=== PATIENT | male | born 1965 | race Hispanic/Latino ===

== ENCOUNTER 2016-11-19 12:37 | Emergency (ER) | payer MEDICARE ==
--- OUTSIDE RECORDS SUMMARY | 2016-11-19 12:39 | XMS | Clinical Summary ---
:1965 Author Organization [facility] Address [address] [place] [address] Phone Care Team Providers Name Role Phone , Primary Care Provider Unavailable Allergies No Known Allergies Current Medications No known medications Active Problems Not on file Social History Tobacco Use Types Packs/Day Years Used Date Never Smoker Alcohol Use Drinks/Week oz/Week Comments No Sex Assigned at Date Recorded Not on file Last Filed Vital Signs Vital Sign Reading Time Taken Blood Pressure 210/93 01/27/2015 11:40 PM INVOICING MACHINE OPERATOR Pulse 76 01/27/2015 11:40 PM INVOICING MACHINE OPERATOR Temperature 37.1 C (98.7 F) 01/27/2015 11:40 PM INVOICING MACHINE OPERATOR Respiratory Rate 20 01/27/2015 11:40 PM INVOICING MACHINE OPERATOR Oxygen Saturation 100% 01/27/2015 11:40 PM INVOICING MACHINE OPERATOR Inhaled Oxygen Concentration - - Weight - - Height 165.1 cm (5' 5") 01/27/2015 11:41 PM INVOICING MACHINE OPERATOR Body Mass Index - - Plan of Treatment Not on file Results Not on filefrom Last 3 Months
--- OUTSIDE RECORDS SUMMARY | 2016-11-19 12:39 | XMS | Clinical Summary ---
:1965 Author Organization [facility] Address [address] [place] [id number] Phone Care Team Providers Name Role Phone Asked, No Primary Care Provider Unavailable Allergies No Known Allergies Current Medications Not on file Active Problems Problem Noted Date Type 2 diabetes mellitus 03/16/2016 Encounters Date Type Specialty Care Team Description 11/12/2016 Telephone Transplant Jazmine Valladares Urology Consult (Spoke to pt regarding missed appt w/Dr. Early 10/22/16 he stated he was not able to come in and forgot he had an appt let him know he needs to keep his appt since we have already r/s him afew times. He stated he will as long as I schedule him a -W-. Let him know I will call him back w/ appt date and time) 10/07/2016 Documentation Transplant Jazmine Valladares Kidney Eval Appts ( Mailed pt his updated itineraries w/ 3 stool cards and instructions) 10/05/2016 Telephone Transplant Jaz[facility] Vallada[facility] Kidney Eval Appts (Pt called back he stated he needs to r/s his appts that he missed he stated he has not heard from us I let him know I had spoken to him in June to let him know I was going to r/s hisappts that he missed. He stated he doesn't remember pt gave me his son's updated phone # [phone] and stated his [address] # is [address] not 01 let him know we will update information and I am going to r/shis missed appts. He stated he is only available T-T due to dialysis) 10/01/2016 Telephone Transplant Jazmine Vallada[facility] Kidney Eval Appt (Called pts mother back let her know that I need for patient to call me back so I could r/s his kidney eval appts she stated she is going to relate the message to him) from Last 3 Months Social History Tobacco Use Types Packs/Day Years Used Date Never Smoker Smokeless Tobacco: Never Used Sex Assigned at Date Recorded Not on file Last Filed Vital Signs Vital Sign Reading Time Taken Blood Pressure 132/75 04/22/2016 7:25 AM FLESHING MACHINE OPERATOR Pulse 75 04/22/2016 7:25 AM FLESHING MACHINE OPERATOR Temperature 35.8 C (96.4 F) 04/22/2016 7:24 AM FLESHING MACHINE OPERATOR Respiratory Rate 18 04/22/2016 7:24 AM FLESHING MACHINE OPERATOR Oxygen Saturation 99% 04/22/2016 7:24 AM FLESHING MACHINE OPERATOR Inhaled Oxygen Concentration - - Weight 101 kg (223 lb 6.4 oz) 04/22/2016 7:24 AM FLESHING MACHINE OPERATOR Height 167.6 cm (5' 6") 04/22/2016 7:24 AM FLESHING MACHINE OPERATOR Body Mass Index 36.06 04/22/2016 7:24 AM FLESHING MACHINE OPERATOR Plan of Treatment Health Maintenance Due Date Last Done Comments FOOT EXAM 1976 OPHTHALMOLOGY EXAM 1976 URINE MICROALBUMIN 1976 COLONOSCOPY 2016 INFLUENZA VACCINE 09/15/2016 Results Not on filefrom Last 3 Months Insurance Payer Benefit Plan / Group Subscriber ID Type Phone Address MEDICARE MEDICARE PART A AND B [id number] Medicare [place], [place] VIRGIL METCALF Transplant Self 1965 Home: [address] [phone] [place] [address]
--- NOTE | 2016-11-19 14:35 | ULT ---
RIGHT LOWER EXTREMITY VENOUS ULTRASOUND WITH DOPPLER: History Pain. COMPARISON: None. TECHNIQUE: Pool scale, color flow, Doppler imaging and spectral waveform analysis was performed of the right lo wer extremity. FINDINGS: There is compressibility, presence of flow, and augmentation of the common femoral vein, femoral vei n, and popliteal vein. Flow in the greater saphenous vein and profunda vein. Flow in the posterior tibial vein. IMPRESSION: No evidence of thrombus in the right lower extremity deep venous system. POS: [facility]
== END 2016-11-19 14:03 | disposition home or self-care (01) ==
LOC: ERS 12:37
DX: M25.561 Pain in right knee (principal); E78.5 Hyperlipidemia, unspecified; I12.0 Hypertensive chronic kidney disease with stage 5 chronic kidney disease or end stage renal disease; E11.22 Type 2 diabetes mellitus with diabetic chronic kidney disease; N18.6 End stage renal disease; F32.9 Major depressive disorder, single episode, unspecified; Z99.2 Dependence on renal dialysis; Z79.4 Long term (current) use of insulin; Z79.899 Other long term (current) drug therapy

== ENCOUNTER 2017-07-13 18:29 | Emergency (ER) | payer MEDICARE ==
[2017-07-13 19:07] LABS: #Eosinphils 0.2 thou/uL (0.0-0.7); #Lymphocytes 2.3 thou/uL (1.20-3.40); #Monocytes 0.8 thou/uL (0.11-0.59); #Neutrophils 10.7 thou/uL (1.40-6.50); %Basophils 0.3 % (0.0-1.0); %Eosinophils 1.7 % (0.0-10.0); Hemoglobin 12.7 g/dL (14.0-18.0); Mean Corpuscular HGB CONC 34.3 g/dL (32.0-36.0); Mean Corpuscular Hemoglobin 31.9 pg (27.0-31.0); Mean Platelet Volume 9.2 fL (7.4-10.4); Platelet Count 244 thou/uL (130-400); Red Blood Cell (RBC) Count 3.97 mill/uL (4.70-6.10); White Blood Cell (WBC) Count 14.1 thou/uL (4.8-10.8)
[2017-07-13 19:30] LABS: ALT (SGPT) 12 U/L (8-55); AST (SGOT) 11 U/L (5-34); Albumin 3.9 g/dL (3.5-5.0); Alkaline Phosphatase 104 U/L (40-150); Anion Gap 15 mmol/L (10-20); BUN (Urea Nitrogen) 40 mg/dL (8.4-25.7); Bilirubin, Total 0.5 mg/dL (0.2-1.2); Calc. Creatinine Clearance 0 mL/min (70-130); Calcium 9.8 mg/dL (7.8-10.44); Carbon Dioxide 30 mmol/L (22-29); Chloride 96 mmol/L (98-107); Estimated GFR-MDRD 10; Globulin 3.7 g/dL (2.4-3.5); Glucose 450 mg/dL (70-105); Potassium 4.5 mmol/L (3.5-5.1); Protein, Total 7.6 g/dL (6.0-8.3); Sodium 136 mmol/L (136-145)
[2017-07-13 19:35] LABS: CKMB 1.9 ng/mL (0-6.6); Troponin I 0.023 ng/mL (< 0.028)
--- NOTE | 2017-07-13 19:39 | RAD ---
SINGLE VIEW OF THE CHEST 07/13/17 COMPARISON: 10/31/16 HISTORY: Weakness with dizziness and shortness of breath. FINDINGS: Single view of the chest shows an enlarged but stable cardiomediastinal silhouette. Linear opacity in the right lung base likely represents atelectasis. There is no evidence of consolidation, mass, or p leural effusion. IMPRESSION: 1. Right basilar atelectasis. 2. Cardiomegaly. POS: [facility]
[2017-07-13] MEDS ORDERED: Insulin Regular 300 UNITS/3 ML VIAL ONE (19:46)
[2017-07-13 19:49] LABS: Bilirubin Negative (Negative); Blood, Urine Trace (Negative); Clarity CLEAR (Clear); Glucose, Urine (Dipstick) 500 mg/dL (Negative); Leukocyte Negative (Negative); Nitrite Negative (Negative); Protein, Urine (Dipstick) 300 mg/dL (Neg-Trace); Specific Gravity, Urine 1.017 (1.002-1.036); Urobilinogen 0.2 mg/dL (0.2-1.0); pH, Urine 7.5 (5.0-9.0)
[2017-07-13 19:50] LABS: Bacteria/HPF None Seen HPF (None Seen); Hyaline Casts/LPF 0-3 HYALINE CAST LPF (0-3 Hyaline); RBC/HPF 0-3 HPF (0-3); Squamous Epithelial 0-3 HPF (0-3); WBC/HPF 0-3 HPF (0-3)
== END 2017-07-13 20:04 | disposition home or self-care (01) ==
LOC: ERS 18:29
DX: J18.9 Pneumonia, unspecified organism (principal); I12.0 Hypertensive chronic kidney disease with stage 5 chronic kidney disease or end stage renal disease; E11.22 Type 2 diabetes mellitus with diabetic chronic kidney disease; E11.65 Type 2 diabetes mellitus with hyperglycemia; N18.6 End stage renal disease; E11.42 Type 2 diabetes mellitus with diabetic polyneuropathy; E78.5 Hyperlipidemia, unspecified; F32.9 Major depressive disorder, single episode, unspecified; Z79.899 Other long term (current) drug therapy; Z99.2 Dependence on renal dialysis; Z79.4 Long term (current) use of insulin
CPT/HCPCS: 36416; 71045; 80053; 81003; 81015; 82010; 82553; 84484; 85025; 87086; 93005; 96374; J1815

== ENCOUNTER 2018-12-02 14:12 | Emergency (ER) | payer MEDICAID, SELFPAY ==
--- NOTE | 2018-12-02 14:48 | RAD ---
PORATBLE CHEST 1 VIEW: Date: 12/02/18 Time: 1425 hours HISTORY: Chest pain. FINDINGS: Comparison made with exam of 07/13/17. The heart size is borderline. No focal areas of consolidation, pneumothoraces, janusz pulmonary edema, or pleural effusions are seen. IMPRESSION: No acute process. POS: [facility]
[2018-12-02 14:58] LABS: ALT (SGPT) 12 U/L (8-55); AST (SGOT) 14 U/L (5-34); Albumin 4.5 g/dL (3.5-5.0); Alkaline Phosphatase 68 U/L (40-110); Anion Gap 24 mmol/L (10-20); BUN (Urea Nitrogen) 45 mg/dL (8.4-25.7); Bilirubin, Total 0.4 mg/dL (0.2-1.2); Calc. Creatinine Clearance 0 mL/min (70-130); Calcium 9.4 mg/dL (7.8-10.44); Carbon Dioxide 25 mmol/L (22-29); Chloride 93 mmol/L (98-107); Estimated GFR-MDRD 6; Globulin 3.8 g/dL (2.4-3.5); Glucose 337 mg/dL (70-105); Potassium 5.3 mmol/L (3.5-5.1); Protein, Total 8.3 g/dL (6.0-8.3); Sodium 137 mmol/L (136-145)
[2018-12-02 15:22] LABS: #Basophils 0.1 thou/uL (0.0-0.2); #Eosinphils 0.3 thou/uL (0.0-0.7); #Lymphocytes 2.8 thou/uL (1.20-3.40); #Monocytes 1.2 thou/uL (0.11-0.59); #Neutrophils 9.6 thou/uL (1.40-6.50); %Basophils 0.5 % (0.0-1.0); %Eosinophils 1.9 % (0.0-10.0); %Lymphocytes 20.1 % (21.0-51.0); %Monocytes 8.8 % (0.0-10.0); %Neutrophils 68.6 % (42.0-75.0); Hemoglobin 12.6 g/dL (14.0-18.0); Mean Corpuscular HGB CONC 33.7 g/dL (32.0-36.0); Mean Corpuscular Volume 94.9 fL (78.0-98.0); Mean Platelet Volume 9.5 fL (7.4-10.4); Platelet Count 215 thou/uL (130-400); RBC Distribution Width 13.4 % (11.5-14.5); Red Blood Cell (RBC) Count 3.94 mill/uL (4.70-6.10); White Blood Cell (WBC) Count 13.9 thou/uL (4.8-10.8)
[2018-12-02] MEDS ORDERED: Ondansetron ODT 4 MG TAB ONE (16:25)
[2018-12-02] MEDS ORDERED: Acetaminophen/Codeine 30-300mg Tablet ONE (16:25)
== END 2018-12-02 16:40 | disposition home or self-care (01) ==
LOC: ERS 14:12
DX: R07.89 Other chest pain (principal); K29.70 Gastritis, unspecified, without bleeding; I12.0 Hypertensive chronic kidney disease with stage 5 chronic kidney disease or end stage renal disease; E11.22 Type 2 diabetes mellitus with diabetic chronic kidney disease; N18.6 End stage renal disease; E78.5 Hyperlipidemia, unspecified; E78.00 Pure hypercholesterolemia, unspecified; F32.9 Major depressive disorder, single episode, unspecified; Z79.899 Other long term (current) drug therapy; Z99.2 Dependence on renal dialysis
CPT/HCPCS: 36415; 71045; 80053; 84484; 85025; 93005; Q0162

== ENCOUNTER 2019-02-12 13:19 | Emergency (ER) | payer MEDICARE ==
[2019-02-12 13:57] LABS: #Basophils 0.1 thou/uL (0.0-0.2); #Eosinphils 0.4 thou/uL (0.0-0.7); #Lymphocytes 2.1 thou/uL (1.20-3.40); #Monocytes 0.9 thou/uL (0.11-0.59); #Neutrophils 8.5 thou/uL (1.40-6.50); %Basophils 0.8 % (0.0-1.0); %Eosinophils 2.9 % (0.0-10.0); %Lymphocytes 17.8 % (21.0-51.0); %Monocytes 7.5 % (0.0-10.0); %Neutrophils 70.9 % (42.0-75.0); Hemoglobin 12.6 g/dL (14.0-18.0); Mean Corpuscular HGB CONC 33.8 g/dL (32.0-36.0); Mean Corpuscular Hemoglobin 32.2 pg (27.0-31.0); Mean Corpuscular Volume 95.2 fL (78.0-98.0); Mean Platelet Volume 9.3 fL (7.4-10.4); Platelet Count 236 thou/uL (130-400); RBC Distribution Width 14.1 % (11.5-14.5); Red Blood Cell (RBC) Count 3.91 mill/uL (4.70-6.10)
[2019-02-12 14:18] LABS: ALT (SGPT) Less than 7 U/L (8-55); AST (SGOT) 9 U/L (5-34); Albumin 3.8 g/dL (3.5-5.0); Alkaline Phosphatase 58 U/L (40-110); Anion Gap 22 mmol/L (10-20); BUN (Urea Nitrogen) 68 mg/dL (8.4-25.7); Bilirubin, Total 0.5 mg/dL (0.2-1.2); Calc. Creatinine Clearance 0 mL/min (70-130); Calcium 10.3 mg/dL (7.8-10.44); Carbon Dioxide 26 mmol/L (22-29); Chloride 97 mmol/L (98-107); Estimated GFR-MDRD 6; Globulin 3.6 g/dL (2.4-3.5); Glucose 208 mg/dL (70-105); Potassium 5.2 mmol/L (3.5-5.1); Protein, Total 7.4 g/dL (6.0-8.3); Sodium 140 mmol/L (136-145)
== END 2019-02-12 18:00 | disposition home or self-care (01) ==
LOC: ERS 13:19
DX: R42 Dizziness and giddiness (principal); I12.0 Hypertensive chronic kidney disease with stage 5 chronic kidney disease or end stage renal disease; E11.22 Type 2 diabetes mellitus with diabetic chronic kidney disease; N18.6 End stage renal disease; E78.5 Hyperlipidemia, unspecified; E78.00 Pure hypercholesterolemia, unspecified; F32.9 Major depressive disorder, single episode, unspecified; Z79.899 Other long term (current) drug therapy; Z99.2 Dependence on renal dialysis
CPT/HCPCS: 36415; 36416; 80053; 82550; 85025; 93005; 96360; 96361

== ENCOUNTER 2019-11-03 10:01 | Emergency (ER) | payer MEDICAID ==
[2019-11-03 11:53] LABS: #Eosinphils 0.3 thou/uL (0.0-0.7); #Lymphocytes 2.6 thou/uL (1.20-3.40); #Neutrophils 8.4 thou/uL (1.40-6.50); %Basophils 0.4 % (0.0-1.0); %Eosinophils 2.1 % (0.0-10.0); %Lymphocytes 20.9 % (21.0-51.0); %Monocytes 8.1 % (0.0-10.0); %Neutrophils 68.5 % (42.0-75.0); Mean Corpuscular HGB CONC 32.8 g/dL (32.0-36.0); Mean Corpuscular Volume 91.6 fL (78.0-98.0); Mean Platelet Volume 9.6 fL (7.4-10.4); Platelet Count 241 thou/uL (130-400); RBC Distribution Width 14.3 % (11.5-14.5); Red Blood Cell (RBC) Count 4.33 mill/uL (4.70-6.10); White Blood Cell (WBC) Count 12.3 thou/uL (4.8-10.8)
[2019-11-03 12:15] LABS: Anion Gap 23 mmol/L (10-20); BUN (Urea Nitrogen) 61 mg/dL (8.4-25.7); Calc. Creatinine Clearance 0 mL/min (70-130); Calcium 8.6 mg/dL (7.8-10.44); Carbon Dioxide 23 mmol/L (22-29); Chloride 98 mmol/L (98-107); Estimated GFR-MDRD 8; Potassium 4.5 mmol/L (3.5-5.1); Sodium 139 mmol/L (136-145)
[2019-11-03 12:18] LABS: Glucose 50 mg/dL (70-105)
--- NOTE | 2019-11-04 11:13 | EKG ---
Test Reason : Blood Pressure : / mmHG Vent. Rate : 057 BPM Atrial Rate : 057 BPM P-R Int : 188 ms QRS Dur : 102 ms QT Int : 522 ms P-R-T Axes : 058 033 072 degrees QTc Int : 508 ms Sinus bradycardia Prolonged QT Abnormal ECG Confirmed by GISELA COLE MD ([id number]), photographic editor ASPEN ANAYA ([id number]) on 11/04/2019 11:13:38 AM Referred By: Confirmed By:GISELA COLE MD
== END 2019-11-03 13:31 | disposition home or self-care (01) ==
LOC: ERS 10:01
DX: E11.649 Type 2 diabetes mellitus with hypoglycemia without coma (principal); E11.22 Type 2 diabetes mellitus with diabetic chronic kidney disease; I12.0 Hypertensive chronic kidney disease with stage 5 chronic kidney disease or end stage renal disease; N18.6 End stage renal disease; E78.5 Hyperlipidemia, unspecified; E78.00 Pure hypercholesterolemia, unspecified; F32.9 Major depressive disorder, single episode, unspecified; Z79.899 Other long term (current) drug therapy
CPT/HCPCS: 36415; 36416; 80048; 85025; 93005

== ENCOUNTER 2020-03-29 14:58 | Inpatient (IN) | payer MEDICARE ==
--- NOTE | 2020-03-29 15:53 | PDOC.FPRHP ---
- History of Present Illness Chief Complaint: fever History of Present Illness: Pt is a 54yo male w/ hx of ESRD on HD, DM2 and HTN who presented to outside ED with complaint of fever and cough. At that facility he tested COVID+. Symptom onset was 03/26/20. CXR showed COVID pna. Was started on 3L NC. C/o persistent cough that began 3 days ago and fever that started today. Unknown if exposed to any sick contacts. Denies CP, palpitations, hematemesis, N/V/D, syncope, rash. Human Performance Consultant, Dr Cheng ED Course: Doxycycline, Rocephin, Decadron - Allergies/Adverse Reactions Allergies Allergy/AdvReac Type Severity Reaction Status Date / Time No Known Allergies Allergy Verified 03/29/20 21:53 - Home Medications Medication Instructions Recorded Confirmed Type Insulin Detemir 100 UNITS/ML 28 units SC BID 07/10/16 03/30/20 History [Levemir] hydrALAZINE [Apresoline] 50 mg PO TID 07/10/16 03/29/20 History Amlodipine [Norvasc] 10 mg PO DAILY 03/29/20 03/29/20 History Atorvastatin Calcium [Lipitor] 40 mg PO DAILY 03/29/20 03/29/20 History Carvedilol [Coreg] 6.25 mg PO BID-WM #60 tab 04/03/20 Rx Dexamethasone 6 mg PO DAILY #4 tablet 04/03/20 Rx Gabapentin 300 mg PO DAILY #30 capsule 04/03/20 Rx HumaLOG [HumaLOG Vial] 11 units SC AC vial 04/03/20 Rx - History PMHx: ESRD on HD T//Wed, HTN, DM2 PSHx: none FHx: non-contributory Social: SonAlexis, - Review of Systems General: reports: fever/chills, fatigue Eyes: denies: vision changes ENT: denies: nasal congestion, rhinorrhea Respiratory: reports: cough, shortness of breath. denies: congestion Cardiovascular: denies: chest pain, palpitation Gastrointestinal: denies: nausea, vomiting, diarrhea Genitourinary: denies: incontinence, dysuria Skin: denies: rashes Musculoskeletal: denies: pain Neurological: denies: syncope, seizure - Vital signs BP: 135/59, HR 71, T 99.6, O2 sat 88% on RA - Physical Exam Constitutional: NAD, awake, alert and oriented, well developed HEENT: EOMI, grossly normal vision, grossly normal hearing Neck: supple, trachea midline Chest: no-tender to palpation Heart: RRR, normal S1/S2 -Lungs: bilat diffuse inspiratory crackles, no wheezing Abdomen: soft, non-tender Musculoskeletal: normal structure, normal tone Neurological: no focal deficit, CN II-XII intact Skin: no rash/lesions, good turgor Heme/Lymphatic: no unusual bruising or bleeding, no purpura Psychiatric: normal mood and affect, good judgment and insight FMR H&P: Results - Labs Result Diagrams: 03/30/20 04:59 04/02/20 04:40 FMR H&P: A/P - Plan 54yo male w/ hx of ESRD on HD who presents with cough, fever and recent diagnosis of COVID pna #Acute hypoxic resp failure / COVID pna -dx on 03/29/20 at outside ED, sx onset 03/26/20 -CXR: COVID pna -s/p rocephin and doxycycline in ED, will not continue at this time -will start daily decadron 6mg and convalescent plasma -does not qualify for remdesevir due to ESRD -pending COVID labs and procal -currently on 3L NC, will monitor O2 sats and wean as tolerated #ESRD on HD T//Wed -consulted nephrology, Dr Cheng: appreciate recs DM2 -unsure of home meds, son will bring them to hospital -started mild SSI, accuchecks ACHS HTN -needs med rec Code: Full PCP: CC Diet: renal high protein IVF: SL Dispo: Admit to inpatient medical, monitor resp status, nephro consulted for ESRD, LOS expected to be >48hrs FMR H&P: Upper Level - Plan Date/Time: 03/29/20 1551 IMartin, have evaluated this patient and agree with findings/plan as outlined by pharmacy grad intern resident. Pertinent changes/additions are listed here. 54-year-old male with history of an stage renal disease on hemodialysis Wednesday. He presents by transferred from outside ER at [facility] for shortness of breath. In the emergency room he was diagnosed with Covid 19 and found to be hypoxic. He was started on nasal cannula oxygen and was stabilized on 3 L. Of note his temperature max at outside ER was 103.5 and respiratory rate was 24. Patient states he has had the symptoms for 3 days now, he is not sure of specific sick contacts. He denies history of other chronic pulmonary problems. He has also had associated cough, no hemoptysis. No chest pain no palpitations On exam he is now resting comfortably on 3 L of oxygen, otherwise vitals unremarkable. His lungs have bilateral diffuse inspiratory crackles heart has regular rate and rhythm with no murmur. Remedies have no edema Assessment and plan Acute hypoxic respiratory failure and sepsis secondary to COVID-19 pneumonia SIRS criteria have already resolved with oxygen supplementation, he is stable on 3 L of oxygen. Will treat with daily put in orders for convalescent plasma, continue steroids. Remdezevir contraindicated 2/2 ESRD. Will order initial Covid labs including pro-Rich possible bacterial pneumonia, follow-up CXR in ho use. he is status post Rocephin and doxycycline in the ER, will hold further antibiotics at this time. End-stage renal disease Consult nephrology, plan for dialysis Wednesday Hypertension, diabetes Patient is unsure of home medications, son states he will bring them up to hospital. Will restart when this list is provided Code: full code Disposition: inpatient, expect more than 2 midnights Addendum - Attending - Attending Attestation Date/Time: 04/04/20 1520 I personally evaluated the patient and discussed the management with Dr. Coto at time of admission. I agree with the History, Examination, Assessment and Plan documented above with any addition or exceptions noted below.
--- NOTE | 2020-03-29 16:03 | RAD ---
XR Chest 1 View Portable History: Shortness of breath Comparison: Radiograph December 02, 2018 Findings: Extensive airspace opacities throughout the lungs. No pneumothorax. Left subclavian vascula r endograft is new from 2019. No pneumothorax or pneumomediastinum. Impression: Extensive airspace opacities of the lungs concerning for Covid pneumonia.
[2020-03-29 16:27] LABS: SARS-CoV-2 NAA Rapid Test DETECTED (NotDetected)
[2020-03-29] MEDS ORDERED: Ondansetron PF 4 MG/2 ML Vial IVP PRN (16:39)
[2020-03-29] MEDS ORDERED: Ondansetron ODT 4 MG TAB PO PRN (16:39)
[2020-03-29] MEDS ORDERED: Dextrose 5% in Water 1,000 ML IV PRN (17:01)
[2020-03-29] MEDS ORDERED: Dextrose 50% Abboject 50 ML SYRINGE SLOW IVP PRN (17:01)
[2020-03-29 18:28] VITALS: BMI 40.6
[2020-03-29] MEDS: Calcium Carbonate 500 MG ChewTAB PO PRN (21:29)
[2020-03-29] MEDS: Benzonatate 100 MG CAP PO PRN (21:29)
[2020-03-29] MEDS: Heparin 5,000 UNITS/ML VIAL SC SCH (21:30)
[2020-03-29] MEDS: HumaLOG 300 UNITS/3 ML VIAL SC PRN (21:31)
[2020-03-29] MEDS: Azithromycin 500 MG in Sodium Chloride 0.9% 250 ML 250 ML IVPB SCH (21:32)
[2020-03-29] MEDS ORDERED: Benzonatate 100 MG CAP PO SCH (23:15)
[2020-03-30] MEDS ORDERED: guaiFENesin ER 600 MG TAB PO SCH (03:15)
[2020-03-30] MEDS: HumaLOG 300 UNITS/3 ML VIAL SC PRN ×3 (04:39→20:54)
[2020-03-30 05:39] LABS: #Lymphocytes 1.2 thou/uL (1.20-3.40); #Neutrophils 9.5 thou/uL (1.40-6.50); %Basophils 0.1 % (0.0-1.0); %Lymphocytes 10.4 % (21.0-51.0); %Monocytes 8.6 % (0.0-10.0); %Neutrophils 80.7 % (42.0-75.0); Hemoglobin 10.9 g/dL (14.0-18.0); Mean Corpuscular HGB CONC 32.9 g/dL (32.0-36.0); Mean Corpuscular Hemoglobin 31.5 pg (27.0-31.0); Mean Corpuscular Volume 95.6 fL (78.0-98.0); Mean Platelet Volume 9.8 fL (7.4-10.4); Platelet Count 190 thou/uL (130-400); Red Blood Cell (RBC) Count 3.46 mill/uL (4.70-6.10); White Blood Cell (WBC) Count 11.7 thou/uL (4.8-10.8)
[2020-03-30 06:01] LABS: ALT (SGPT) 10 U/L (8-55); AST (SGOT) 17 U/L (5-34); Albumin 3.3 g/dL (3.5-5.0); Alkaline Phosphatase 46 U/L (40-110); Anion Gap 22 mmol/L (10-20); BUN (Urea Nitrogen) 51 mg/dL (8.4-25.7); Bilirubin, Total 0.4 mg/dL (0.2-1.2); Calc. Creatinine Clearance 16 mL/min (70-130); Calcium 7.8 mg/dL (7.8-10.44); Carbon Dioxide 24 mmol/L (22-29); Chloride 91 mmol/L (98-107); Globulin 3.7 g/dL (2.4-3.5); Glucose 432 mg/dL (70-105); Potassium 5.1 mmol/L (3.5-5.1); Sodium 132 mmol/L (136-145)
--- NOTE | 2020-03-30 06:32 | PDOC.FM ---
- Subjective Subjective: Pt had no acute events overnight. Denies SOB. C/o cough and GERD - Objective Vital Signs & Weight: Vital Signs (12 hours) Temp Pulse Resp BP Pulse Ox 03/30/20 05:00 152/74 H 03/30/20 04:00 98.9 F 64 20 166/81 H 97 03/30/20 02:59 98.9 F 22 H 92 L 03/30/20 00:45 98.3 F 20 94 L 03/30/20 00:30 99.0 F 18 95 03/30/20 00:00 97.9 F 75 20 146/98 H 94 L 03/29/20 20:39 98.5 F 70 18 132/72 97 03/29/20 20:00 94 L Weight Weight 114.124 kg Most Recent Monitor Data Heart Rate from ECG 68 NIBP 162/74 Respiration from ECG 22 I&O: 03/28/20 03/29/20 03/30/20 06:59 06:59 06:59 Intake Total 0 Balance 0 Result Diagrams: 03/30/20 04:59 03/30/20 04:59 Phys Exam - Physical Examination Constitutional: NAD Neck: supple, full ROM crackles heard bilaterally at lung base Cardiovascular: RRR, no significant murmur Gastrointestinal: soft, non-tender Musculoskeletal: no edema Neurological: non-focal Psychiatric: normal affect, A&O x 3 Dx/Plan - Plan Plan: 54yo male w/ hx of ESRD on HD who presents with cough, fever and recent diagnosi s of COVID pna #Acute hypoxic resp failure 2/ COVID pna -dx on 03/29/20 at outside ED, sx onset 03/26/20 -CXR: COVID pna -s/p rocephin and doxycycline in ED -will start daily decadron 6mg and convalescent plasma -does not qualify for remdesevir due to ESRD -currently on 4L NC, will monitor O2 sats and wean as tolerated -procal 23, possible bacterial infection superimposed on COVID, started Azithro and continued Rocephin -will add anti-tussive #ESRD on HD T//Sat -consulted nephrology, Dr Flores, planning for dialysis today DM2 -continue home meds, will adjust as needed, pt will be on steroids -started mild SSI, accuchecks ACHS HTN -continue home meds GERD -continue home omeprazole Code: Full PCP: EMILIA Diet: renal high protein IVF: SL Dispo: Admit to inpatient medical, monitor resp status, nephro consulted for ESRD, LOS expected to be >48hrs
[2020-03-30] MEDS: Benzonatate 100 MG CAP PO PRN ×2 (08:32→23:35)
[2020-03-30] MEDS: Dexamethasone 4 MG TAB PO SCH (08:32)
[2020-03-30] MEDS: hydrALAZINE 25 MG TAB PO SCH ×3 (08:32→20:54)
[2020-03-30] MEDS: guaiFENesin ER 600 MG TAB PO PRN (08:33)
[2020-03-30] MEDS: Heparin 5,000 UNITS/ML VIAL SC SCH ×3 (08:33→20:54)
[2020-03-30] MEDS: Atorvastatin Calcium 40 MG TAB PO SCH (08:33)
[2020-03-30] MEDS: Acetaminophen 325 MG TAB PO PRN (08:33)
[2020-03-30] MEDS: Amlodipine 10 MG TAB PO SCH (08:33)
[2020-03-30] MEDS: Insulin Glargine 28 UNITS in Pre-Filled Syringe 1 EACH SC SCH (08:34)
[2020-03-30] MEDS ORDERED: Non-Formulary Item 1 EACH (Insulin Detemir 100 Units/Ml [Levemir] 100 UNITS/ML Vial) SC SCH (09:00)
[2020-03-30] MEDS ORDERED: Promethazine DM 6.25-15mg/5ml 120 ML BOT PO PRN (11:23)
--- NOTE | 2020-03-30 11:24 | PRG ---
DATE OF SERVICE: 03/30/2020 Please see the note from Dr. Coto, which I agree. The patient was seen, evaluated, and discussed with the residents by bedside. The patient is here for COVID pneumonia, is needing 3 L of nasal cannula, nothing too extreme. Procalcitonin was elevated, so added antibiotics. Holding off on remdesivir because of his renal failure and doing dialysis here. He should be due for that again today, but we are treating with Tessalon and assuming we are going to get him set up for plasma treatment as well. Exam is fairly benign. He seems to be breathing comfortably. His chest is clear. He is coughing a lot. Job ID: [id number]
[2020-03-30] MEDS: cefTRIAXone\\ROCEPHIN 1 GM in Sodium Chloride 0.9% 100 ML IVPB SCH (12:32)
--- NOTE | 2020-03-30 12:45 | CON ---
DATE OF CONSULTATION: REASON FOR CONSULTATION: Stage 6 chronic kidney disease for maintenance hemodialysis. HISTORY: A 54-year-old gentleman on dialysis Wednesday, , Wednesday, presented to the hospital with fever. The patient denies any nausea, vomiting, or chest pain. The patient is supposed to get dialysis today. PAST MEDICAL HISTORY: End-stage renal disease, hypertension, diabetes mellitus, tunneled dialysis catheter, AV fistula. SOCIAL HISTORY: No alcohol or drug use. FAMILY HISTORY: Negative for ESRD. ALLERGIES: REVIEWED. HOME MEDICATIONS: List reviewed. HOSPITAL MEDICATIONS: List reviewed. REVIEW OF SYSTEMS: Fifteen-point review of system was performed and negative except for positives noted above. HEENT: Eyes intact, no diplopia. Ears: No hearing loss or earache. Nose: No discharge or bleeding. Chest: No cough or phlegm. Abdomen: No nausea or vomiting. Genitourinary: No hematuria. No Hardy catheter. Musculoskeletal: No low back pain. No joint swelling or pain. Neurological: No syncope. No seizures. Skin: No complaints of rash or itching. Psychiatric: No depression. Constitutional: No weight loss or loss of appetite. PHYSICAL EXAMINATION: General: The patient is awake and alert. Vital Signs: Afebrile, pulse 68, breathing at 16, blood pressure 154/78. HEENT: Head normocephalic and atraumatic. Eyes intact, no ulcers. Nose intact, no ulcers. Ears intact, no ulcers. Neck: Supple. No JVD. Chest: Symmetrical and clear. Cardiovascular: Shows S1 and S2, no rub, no murmur. Gastrointestinal: Abdomen is soft, bowel sounds positive. Extremities: Show no edema or ulcers. Skin: Shows no rash or petechiae. Musculoskeletal: Shows no joint swelling or stiffness. Genitourinary: Shows no Hardy or CVA tenderness. Neurologic: Motor intact. Cranial nerves intact. LABORATORY DATA: Labs reviewed. ASSESSMENT AND PLAN: 1. Stage 6 chronic kidney disease, plan dialysis. 2. Hyperkalemia, plan dialysis. 3. Anemia, stable. 4. Medication based on GFR appropriate. Job ID: [id number]
[2020-03-30 13:03] LABS: HBSAg Index 0.23 S/CO (0-0.99); Hep B Surf Ag Non-Reactive S/CO (NonReactive)
[2020-03-30] MEDS: Promethazine HCl 6.25 MG/5 ML Syrup PO PRN (18:26)
[2020-03-30] MEDS: Calcium Carbonate 500 MG ChewTAB PO PRN (20:54)
[2020-03-30] MEDS: Azithromycin 500 MG in Sodium Chloride 0.9% 250 ML 250 ML IVPB SCH (21:22)
[2020-03-30] MEDS ORDERED: Lidocaine 2% Viscous Solution 10 ML, Aluminum & Magnesium Hydroxide 30 ML SSW SCH (23:59)
[2020-03-31] MEDS: Promethazine HCl 6.25 MG/5 ML Syrup PO PRN ×3 (04:52→20:56)
[2020-03-31] MEDS: Dextromethorphan Polistirex 30 MG/5 ML (89 ML BOTTLE) PO PRN ×2 (04:52→20:56)
[2020-03-31] MEDS: Calcium Carbonate 500 MG ChewTAB PO PRN ×2 (04:52→08:20)
[2020-03-31] MEDS: HumaLOG 300 UNITS/3 ML VIAL SC PRN ×4 (05:08→20:57)
--- NOTE | 2020-03-31 06:34 | PDOC.FM ---
- Subjective Subjective: Pt has no complaints and no acute events overnight. Tolerating diet, ambulating around room. Denies SOB, Abd pain - Objective Vital Signs & Weight: Vital Signs (12 hours) Temp Pulse Resp BP Pulse Ox 03/31/20 04:41 98.1 F 66 24 H 156/75 H 96 03/30/20 23:35 98.2 F 67 24 H 145/76 H 97 03/30/20 19:41 98.0 F 64 26 H 140/70 95 03/30/20 18:38 64 20 138/58 L 92 L Weight Weight 114.124 kg Most Recent Monitor Data Heart Rate from ECG 68 NIBP 162/74 Respiration from ECG 22 I&O: 03/29/20 03/30/20 03/31/20 06:59 06:59 06:59 Intake Total 0 740 Balance 0 740 Result Diagrams: 03/30/20 04:59 03/31/20 07:05 Phys Exam - Physical Examination Constitutional: NAD Neck: supple, full ROM coarse crackles b/l, worse on R Cardiovascular: RRR, no significant murmur Gastrointestinal: soft, non-tender, no distention Musculoskeletal: no edema Neurological: non-focal Psychiatric: normal affect, A&O x 3 Dx/Plan - Plan Plan: 54yo male w/ hx of ESRD on HD who presents with cough, fever and recent diagnosis of COVID pna #Acute hypoxic resp failure 03/19 COVID pna -dx on 03/29/20 at outside ED, sx onset 03/26/20 -CXR: COVID pna -s/p rocephin and doxycycline in ED -will start daily decadron 6mg and convalescent plasma -does not qualify for remdesevir due to ESRD -currently on 4L NC, will monitor O2 sats and wean as tolerated -procal 23, possible bacterial infection superimposed on COVID, started Azithro and continued Rocephin -will add anti-tussive and albuterol inhaler #ESRD on HD T//Sat -consulted nephrology, Dr Flores -s/p dialysis on 03/30 DM2 -continue home meds, will adjust as needed, pt will be on steroids -started mild SSI, accuchecks ACHS HTN -continue home meds GERD -continue home omeprazole Code: Full PCP: CC Diet: renal high protein IVF: SL Dispo: Admit to inpatient medical, monitor resp status, nephro consulted for ESRD, LOS expected to be >48hrs
[2020-03-31 07:32] LABS: Anion Gap 18 mmol/L (10-20); BUN (Urea Nitrogen) 44 mg/dL (8.4-25.7); Calc. Creatinine Clearance 22 mL/min (70-130); Calcium 8.5 mg/dL (7.8-10.44); Carbon Dioxide 28 mmol/L (22-29); Chloride 95 mmol/L (98-107); Glucose 290 mg/dL (70-105); Potassium 4.4 mmol/L (3.5-5.1); Sodium 137 mmol/L (136-145)
[2020-03-31] MEDS: hydrALAZINE 25 MG TAB PO SCH ×3 (08:20→20:31)
[2020-03-31] MEDS: Atorvastatin Calcium 40 MG TAB PO SCH (08:21)
[2020-03-31] MEDS: Dexamethasone 4 MG TAB PO SCH (08:21)
[2020-03-31] MEDS: Benzonatate 100 MG CAP PO PRN (08:21)
[2020-03-31] MEDS: Acetaminophen 325 MG TAB PO PRN (08:21)
[2020-03-31] MEDS: Amlodipine 10 MG TAB PO SCH (08:21)
[2020-03-31] MEDS: Insulin Glargine 28 UNITS in Pre-Filled Syringe 1 EACH SC SCH ×2 (08:22→20:57)
[2020-03-31] MEDS: Heparin 5,000 UNITS/ML VIAL SC SCH ×3 (08:22→20:56)
--- NOTE | 2020-03-31 11:22 | PRG ---
DATE OF SERVICE: SUBJECTIVE: A 54-year-old gentleman being seen for end-stage renal disease. The patient denies any nausea, vomiting, or chest pain. PHYSICAL EXAMINATION: General: The patient is awake and alert. Vital Signs: Afebrile, pulse 62, breathing at 16, blood pressure 153/80. HEENT: Head normocephalic and atraumatic. Eyes intact, no ulcers. Nose intact, no ulcers. Ears intact, no ulcers. Neck: Supple. No JVD. Chest: Symmetrical and clear. Cardiovascular: Shows S1 and S2, no rub, no murmur. Gastrointestinal: Abdomen is soft, bowel sounds positive. Extremities: Show no edema or ulcers. Skin: Shows no rash or petechiae. Musculoskeletal: Shows no joint swelling or stiffness. Genitourinary: Shows no Hardy or CVA tenderness. Neurologic: Motor intact. Cranial nerves intact. LABS: Reviewed. ASSESSMENT AND PLAN: 1. Stage 2 chronic kidney disease, stable. 2. Hypertensive anemia, stable. 3. Medication based on GFR appropriate. Job ID: [id number]
[2020-03-31] MEDS: Albuterol 200 PUFF (6.7GM INHALER) INH SCH ×4 (12:13→21:59)
[2020-03-31] MEDS: cefTRIAXone\\ROCEPHIN 1 GM in Sodium Chloride 0.9% 100 ML IVPB SCH (12:14)
--- NOTE | 2020-03-31 13:06 | PRG ---
DATE OF SERVICE: 03/31/2020 The patient was seen, evaluated, discussed, and examined with the residents by bedside. COVID patient. Lungs are coarse, but not needing that much more oxygen to get dialysis yesterday and continuing Rocephin and azithromycin, did get plasma and not doing remdesivir secondary to renal status. Job ID: [id number]
[2020-03-31] MEDS: Azithromycin 500 MG in Sodium Chloride 0.9% 250 ML 250 ML IVPB SCH (20:56)
[2020-03-31] MEDS ORDERED: Lidocaine 2% Viscous Solution 10 ML, Aluminum & Magnesium Hydroxide 30 ML SSW SCH (22:00)
[2020-04-01] MEDS ORDERED: hydrALAZINE 25 MG TAB ONE ×2 (07:50→14:59)
[2020-04-01] MEDS ORDERED: Dexamethasone 4 MG TAB ONE (07:50)
[2020-04-01] MEDS ORDERED: Heparin 5,000 UNITS/ML VIAL ONE ×2 (07:50→14:59)
[2020-04-01] MEDS ORDERED: Atorvastatin Calcium 40 MG TAB ONE (07:51)
[2020-04-01] MEDS ORDERED: Amlodipine 10 MG TAB ONE (07:51)
[2020-04-01] MEDS: Dexamethasone 4 MG TAB PO SCH (08:49)
[2020-04-01] MEDS: hydrALAZINE 25 MG TAB PO SCH ×3 (08:49→20:29)
[2020-04-01] MEDS: Amlodipine 10 MG TAB PO SCH (08:50)
[2020-04-01] MEDS: Heparin 5,000 UNITS/ML VIAL SC SCH ×3 (08:50→20:29)
[2020-04-01] MEDS: Atorvastatin Calcium 40 MG TAB PO SCH (08:50)
[2020-04-01] MEDS: Albuterol 200 PUFF (6.7GM INHALER) INH SCH ×5 (11:07→23:15)
[2020-04-01] MEDS: HumaLOG 300 UNITS/3 ML VIAL SC SCH ×2 (12:27→17:17)
[2020-04-01] MEDS: HumaLOG 300 UNITS/3 ML VIAL SC PRN ×3 (12:27→20:30)
[2020-04-01] MEDS ORDERED: cefTRIAXone\\ROCEPHIN 1 GM VIAL ONE (13:02)
[2020-04-01] MEDS: cefTRIAXone\\ROCEPHIN 1 GM in Sodium Chloride 0.9% 100 ML IVPB SCH (13:06)
[2020-04-01] MEDS ORDERED: Cepastat Lozenges 1 LOZ PO PRN (13:11)
[2020-04-01] MEDS: Insulin Glargine 28 UNITS in Pre-Filled Syringe 1 EACH SC SCH ×2 (15:12→20:28)
--- NOTE | 2020-04-01 17:57 | PRG ---
DATE OF SERVICE: 04/01/2020 SUBJECTIVE: The patient on COVID isolation. OBJECTIVE: VITAL SIGNS: Temperature 97.6, pulse 62, respiratory rate 20, blood pressure 156/63. LABORATORY DATA: Not done today. ASSESSMENT AND PLAN: 1. End-stage renal disease. We will continue dialysis on Wednesday, , and Wednesday. Recheck labs in the morning. 2. Edema. 3. History of hypertension. 4. Anemia. 5. COVID-19 infection with pneumonia. 6. Acute hypoxic respiratory failure. PLAN: Continue dialysis TTS as tolerated. Monitor cardiorespiratory status. We will follow. Job ID: [id number]
[2020-04-01 19:09] LABS: Anion Gap 24 mmol/L (10-20); BUN (Urea Nitrogen) 84 mg/dL (8.4-25.7); Calc. Creatinine Clearance 15 mL/min (70-130); Calcium 8.2 mg/dL (7.8-10.44); Carbon Dioxide 21 mmol/L (22-29); Chloride 91 mmol/L (98-107); Potassium 5.1 mmol/L (3.5-5.1); Sodium 131 mmol/L (136-145)
[2020-04-01 19:17] LABS: Glucose 792 mg/dL (70-105)
[2020-04-01] MEDS: Gabapentin 300 MG CAP PO SCH (20:29)
[2020-04-01] MEDS: Azithromycin 500 MG in Sodium Chloride 0.9% 250 ML 250 ML IVPB SCH (20:29)
[2020-04-01 23:35] LABS: Anion Gap 22 mmol/L (10-20); BUN (Urea Nitrogen) 89 mg/dL (8.4-25.7); Calc. Creatinine Clearance 15 mL/min (70-130); Calcium 8.4 mg/dL (7.8-10.44); Carbon Dioxide 23 mmol/L (22-29); Chloride 89 mmol/L (98-107); Sodium 129 mmol/L (136-145)
[2020-04-01 23:50] LABS: Glucose 725 mg/dL (70-105)
[2020-04-02] MEDS: Promethazine HCl 6.25 MG/5 ML Syrup PO PRN ×2 (00:29→08:15)
[2020-04-02] MEDS: Dextromethorphan Polistirex 30 MG/5 ML (89 ML BOTTLE) PO PRN ×2 (00:29→08:13)
[2020-04-02] MEDS: HumaLOG 300 UNITS/3 ML VIAL SC PRN ×6 (00:30→14:31)
[2020-04-02] MEDS: Albuterol 200 PUFF (6.7GM INHALER) INH SCH ×6 (03:23→23:24)
[2020-04-02 05:42] LABS: Anion Gap 23 mmol/L (10-20); BUN (Urea Nitrogen) 96 mg/dL (8.4-25.7); Calc. Creatinine Clearance 15 mL/min (70-130); Calcium 8.4 mg/dL (7.8-10.44); Carbon Dioxide 22 mmol/L (22-29); Chloride 92 mmol/L (98-107); Glucose 465 mg/dL (70-105); Potassium 5.1 mmol/L (3.5-5.1); Sodium 132 mmol/L (136-145)
--- NOTE | 2020-04-02 06:28 | PDOC.FM ---
- Subjective Subjective: Pt resting comfortably in bed. He states that yesterday he only received one meal and he is very hungry. The nurse reported to me that he received 2 lunch trays by accident yesterday. His cough is improved, c/o mild LE neuropathy. Denies SOB, CP, N/V. - Objective Vital Signs & Weight: Vital Signs (12 hours) Temp Pulse Resp BP Pulse Ox 04/02/20 03:36 97.5 F L 58 L 18 173/76 H 96 04/01/20 23:35 97.5 F L 59 L 22 H 158/83 H 100 04/01/20 19:41 97.4 F L 58 L 20 147/69 H 100 Weight Weight 114.124 kg Most Recent Monitor Data Heart Rate from ECG 68 NIBP 162/74 Respiration from ECG 22 I&O: 03/31/20 04/01/20 04/02/20 06:59 06:59 06:59 Intake Total 740 1460 Balance 740 1460 Result Diagrams: 03/30/20 04:59 04/02/20 04:40 Phys Exam - Physical Examination Constitutional: NAD Neck: supple, full ROM crackles b/l Cardiovascular: RRR, no significant murmur Gastrointestinal: soft, non-tender, no distention Neurological: non-focal, moves all 4 limbs Psychiatric: normal affect, A&O x 3 Dx/Plan - Plan Plan: 54yo male w/ hx of ESRD on HD who presents with cough, fever and recent diagnosis of COVID pna #Acute hypoxic resp failure 2/ COVID pna -dx on 03/29/20 at outside ED, sx onset 03/26/20 -CXR: COVID pna -s/p rocephin and azithromycin, unlikely superimposed bacterial infection, clinically improving -will start daily decadron 6mg and convalescent plasma -does not qualify for remdesevir due to ESRD -currently on 2.5L NC, will monitor O2 sats and wean as tolerated -will add anti-tussive and albuterol inhaler -CM consulted: home oxygen #ESRD on HD T//Sat -consulted nephrology, Dr Flores DM2 -continue home meds, will adjust as needed, pt will be on steroids -started mod SSI, accuchecks ACHS -had episodes of hyperglycemia throughout the evening and night, it was discovered that he was not given his scheduled lantus yesterday am and possibly he got 2 lunch trays. Pt had some snacks in room as well. Will monitor his BG today, regulate his diet and give his home regimen plus moderate SSI as needed HTN -continue home meds GERD -continue home omeprazole Code: Full PCP: CC Diet: renal high protein, CC IVF: SL Dispo: Admit to inpatient medical, monitor resp status, nephro consulted for ESRD, LOS expected to be >48hrs Addendum - Attending - Attending Attestation Date/Time: 04/02/20 2023 I personally evaluated the patient and discussed the management with Dr. Coto. I agree with the History, Examination, Assessment and Plan documented above with any addition or exceptions noted below. CM for home O2, although this is unlikely given the weather and just 1 CM for the hospital.
[2020-04-02] MEDS: Dexamethasone 4 MG TAB PO SCH (07:59)
[2020-04-02] MEDS: hydrALAZINE 25 MG TAB PO SCH ×3 (08:00→21:07)
[2020-04-02] MEDS: Atorvastatin Calcium 40 MG TAB PO SCH (08:00)
[2020-04-02] MEDS: Amlodipine 10 MG TAB PO SCH (08:00)
[2020-04-02] MEDS: HumaLOG 300 UNITS/3 ML VIAL SC SCH ×3 (08:03→18:45)
[2020-04-02] MEDS: Insulin Glargine 28 UNITS in Pre-Filled Syringe 1 EACH SC SCH ×2 (09:34→21:07)
[2020-04-02] MEDS: Heparin 5,000 UNITS/ML VIAL SC SCH ×3 (09:35→21:06)
[2020-04-02] MEDS: Carvedilol 6.25 MG TAB PO SCH (18:46)
--- NOTE | 2020-04-02 19:16 | PRG ---
DATE OF SERVICE: 04/02/2020 SUBJECTIVE: The patient is on COVID isolation. OBJECTIVE: VITAL SIGNS: Temperature 97.5, pulse 96, respiratory rate 18, and blood pressure 146/73. LABORATORY DATA: Potassium 5.1, BUN is 96, and creatinine 9.4. ASSESSMENT AND PLAN: 1. End-stage renal disease, continue on hemodialysis Wednesday, , and Wednesday. We will have dialysis. 2. Hyperkalemia. Limit potassium. 3. Hyponatremia. We will remove fluid with dialysis. 4. Edema, controlled. 5. History of hypertension. 6. Anemia of chronic disease. 7. COVID-19 pneumonia. 8. Acute hypoxic respiratory failure. Monitor. Continue supportive care. We will continue dialysis TTS as tolerated. We will follow. Job ID: [id number]
[2020-04-02] MEDS: Gabapentin 300 MG CAP PO SCH (21:06)
[2020-04-03] MEDS: HumaLOG 300 UNITS/3 ML VIAL SC PRN ×2 (00:53→20:57)
[2020-04-03] MEDS: Acetaminophen 325 MG TAB PO PRN ×2 (01:02→23:54)
[2020-04-03] MEDS: Promethazine HCl 6.25 MG/5 ML Syrup PO PRN (02:58)
[2020-04-03] MEDS: Dextromethorphan Polistirex 30 MG/5 ML (89 ML BOTTLE) PO PRN (02:58)
[2020-04-03] MEDS: Albuterol 200 PUFF (6.7GM INHALER) INH SCH ×6 (03:00→23:07)
--- NOTE | 2020-04-03 06:41 | PDOC.FM ---
- Subjective Subjective: Pt awake and alert. C/o cough. Tolerating diet. Says he feels tired when he gets up to walk to the bathroom and has to rest afterwards. Also c/o neuropathy in both feet described as "burning". Answered all his questions a nd spent time teaching him about diabetes, care and goals as well as answering many COVID questions - Objective Vital Signs & Weight: Vital Signs (12 hours) Temp Pulse Resp BP BP Pulse Ox 04/03/20 00:00 97.4 F L 58 L 18 156/77 H 98 04/02/20 21:07 63 04/02/20 20:37 97.3 F L 63 18 164/79 H 97 04/02/20 20:00 97 04/02/20 18:46 153/80 H 04/02/20 18:45 56 L 149/82 H 100 Weight Weight 114.124 kg Most Recent Monitor Data Heart Rate from ECG 68 NIBP 162/74 Respiration from ECG 22 I&O: 04/01/20 04/02/20 04/03/20 06:59 06:59 06:59 Intake Total 1460 570 Balance 1460 570 Result Diagrams: 03/30/20 04:59 04/02/20 04:40 Phys Exam - Physical Examination Constitutional: NAD Neck: supple, full ROM Respiratory: no wheezing, clear to auscultation bilateral Cardiovascular: RRR, no significant murmur Gastrointestinal: soft, non-tender, no distention Musculoskeletal: no edema, pulses present Neurological: non-focal, moves all 4 limbs Psychiatric: normal affect, A&O x 3 Dx/Plan - Plan Plan: 54yo male w/ hx of ESRD on HD who presents with cough, fever and recent diagnosis of COVID pna #Acute hypoxic resp failure 2/ COVID pna -dx on 03/29/20 at outside ED, sx onset 03/26/20 -CXR: COVID pna -s/p rocephin and azithromycin, unlikely superimposed bacterial infection, clinically improving -will start daily decadron 6mg and convalescent plasma -does not qualify for remdesevir due to ESRD -currently on 2.5L NC, will monitor O2 sats and wean as tolerated -on anti-tussive and albuterol inhaler -CM consulted: home oxygen #ESRD on HD T//Sat -consulted nephrology, Dr Flores #DM2 -continue home meds, will adjust as needed, pt will be on steroids -started mod SSI, accuchecks ACHS -started gabapentin for neuropathy #HTN -continue home meds #GERD -continue home omeprazole Code: Full PCP: CC Diet: renal high protein, CC IVF: SL Dispo: Admit to inpatient medical, nephro consulted for ESRD, pending home oxygen per CM, LOS expected to be >48hrs Addendum - Attending - Attending Attestation Date/Time: 04/03/20 1008 I personally evaluated the patient and discussed the management with Dr. Coto. I agree with the History, Examination, Assessment and Plan documented above with any addition or exceptions noted below. I turned off O2. Sat 98%. Plan for o2 eval today and possible dc pending o2 and weather concerns.
[2020-04-03] MEDS: HumaLOG 300 UNITS/3 ML VIAL SC SCH ×3 (07:47→16:54)
[2020-04-03] MEDS: Heparin 5,000 UNITS/ML VIAL SC SCH ×3 (07:48→20:56)
[2020-04-03] MEDS: Atorvastatin Calcium 40 MG TAB PO SCH (07:49)
[2020-04-03] MEDS: Dexamethasone 4 MG TAB PO SCH (07:49)
[2020-04-03] MEDS: Carvedilol 6.25 MG TAB PO SCH ×2 (07:49→16:54)
[2020-04-03] MEDS: hydrALAZINE 25 MG TAB PO SCH ×3 (07:49→20:56)
[2020-04-03] MEDS: Amlodipine 10 MG TAB PO SCH (07:49)
[2020-04-03] MEDS: Insulin Glargine 28 UNITS in Pre-Filled Syringe 1 EACH SC SCH ×2 (09:48→20:56)
--- NOTE | 2020-04-03 15:58 | PRG ---
DATE OF SERVICE: 04/03/2020 SUBJECTIVE: Patient was seen and examined at bedside and overnight events noted. Patient denies any shortness of breath or chest pain or palpitation. No history of nausea or vomiting or diarrhea or fever or chills or cramps. OBJECTIVE: GENERAL: This is a well-built male, in no apparent distress. VITAL SIGNS: Temperature 97.4. Heart Rate 50. Respiratory rate 18. Blood pressure 153/80. HEENT: Atraumatic, normocephalic. Oral mucosa is moist. NECK: Supple. CARDIOVASCULAR: S1, S2 heard. Rate and rhythm regular. RESPIRATORY: Clear to auscultation. GASTROINTESTINAL: Abdomen is soft. MUSCULOSKELETAL: No tenderness. No edema. DERMATOLOGIC: No skin rash. NEUROLOGIC: Alert and awake and oriented x3. No focal neurologic deficits. Moving all the extremities. PSYCHIATRIC: Mood and affect normal. LABORATORY DATA: Not done today. ASSESSMENT AND PLAN: 1. End-stage renal disease. Continue on hemodialysis as tolerated Wednesday, , and Wednesday. 2. Hyperkalemia. Limit potassium. 3. Hyponatremia. 4. Edema. 5. Hypertension. 6. COVID-19 pneumonia. 7. Acute hypoxic respiratory failure. Repeat labs in the morning. Continue dialysis as tolerated. Job ID: [id number]
[2020-04-03] MEDS: Gabapentin 300 MG CAP PO SCH (20:55)
[2020-04-04] MEDS: HumaLOG 300 UNITS/3 ML VIAL SC PRN ×2 (00:46→04:17)
[2020-04-04] MEDS: Albuterol 200 PUFF (6.7GM INHALER) INH SCH ×4 (03:26→15:26)
[2020-04-04] MEDS: guaiFENesin ER 600 MG TAB PO PRN (04:10)
--- NOTE | 2020-04-04 06:25 | PDOC.FM ---
- Subjective Subjective: Pt awake and alert. C/o cough that is making it difficult for him to sleep at night. Denied CP, SOB, N/V. - Objective Vital Signs & Weight: Vital Signs (12 hours) Temp Pulse Resp BP Pulse Ox 04/03/20 20:56 70 04/03/20 20:12 97.4 F L 70 18 142/76 H 98 04/03/20 20:00 98 Weight Weight 114.124 kg Most Recent Monitor Data Heart Rate from ECG 68 NIBP 162/74 Respiration from ECG 22 I&O: 04/02/20 04/03/20 04/04/20 06:59 06:59 06:59 Intake Total 5080 788 6550 Balance 7314 824 3589 Result Diagrams: 03/30/20 04:59 04/02/20 04:40 Phys Exam - Physical Examination Constitutional: NAD Neck: supple, full ROM Respiratory: no wheezing, clear to auscultation bilateral Cardiovascular: RRR, no significant murmur Gastrointestinal: soft, no distention Musculoskeletal: no edema Neurological: non-focal Psychiatric: normal affect, A&O x 3 Dx/Plan - Plan Plan: 54yo male w/ hx of ESRD on HD who presents with cough, fever and recent diagnosis of COVID pna #Acute hypoxic resp failure 2/ COVID pna -dx on 03/29/20 at outside ED, sx onset 03/26/20 -CXR: COVID pna -s/p rocephin and azithromycin, unlikely superimposed bacterial infection, clinically improving -will start daily decadron 6mg and convalescent plasma -does not qualify for remdesevir due to ESRD -on anti-tussive and albuterol inhaler -pt not currently requiring oxygen supplementation. Passed his walking O2 test yesterday so will not require home O2. -Discussed COVID quarantine protocol and advised him to f/u with his PCP after he is out of quarantine period #ESRD on HD T//Wed -consulted nephrology, Dr Flores #DM2 -continue home meds, will adjust as needed, pt will be on steroids -started mod SSI, accuchecks ACHS -started gabapentin for neuropathy #HTN -discontinued his metoprolol and added carvedilol for better BP control with less effect on HR -will need to f/u with PCP for routine monitoring #GERD -continue home omeprazole Code: Full PCP: CC Diet: renal high protein, CC IVF: SL Dispo: Stable, pt was discharged yesterday but was unable to get home due to weather. He will be discharged today and can go home after dialysis. Pt was in agreement with this plan. Addendum - Attending - Attending Attestation Date/Time: 04/04/20 0903 I personally evaluated the patient and discussed the management with Dr. Coto. I agree with the History, Examination, Assessment and Plan documented above with any addition or exceptions noted below. Ok for d/c. Arrange for outpatient dialysis with COVID.
[2020-04-04] MEDS: Heparin 5,000 UNITS/ML VIAL SC SCH ×2 (07:53→14:31)
[2020-04-04] MEDS: HumaLOG 300 UNITS/3 ML VIAL SC SCH ×2 (07:53→11:14)
[2020-04-04] MEDS: hydrALAZINE 25 MG TAB PO SCH ×2 (07:53→14:31)
[2020-04-04] MEDS: Atorvastatin Calcium 40 MG TAB PO SCH (07:54)
[2020-04-04] MEDS: Carvedilol 6.25 MG TAB PO SCH (07:54)
[2020-04-04] MEDS: Dexamethasone 4 MG TAB PO SCH (07:54)
[2020-04-04] MEDS: Amlodipine 10 MG TAB PO SCH (07:55)
[2020-04-04] MEDS ORDERED: Insulin Glargine 35 UNITS in Pre-Filled Syringe 1 EACH SC SCH ×2 (09:00→21:00)
[2020-04-04 10:44] VITALS: BP 93/61; TEMP 97.7
--- NOTE | 2020-04-04 11:35 | PQF ---
CLINICAL DOCUMENTATION CLARIFICATION FORM: Dear Dr. Sunita Coto / Dr. Arthur Navarro Date: 04.04.20 Please exercise your independent, professional judgment in responding to the clarification form. Clinical indicators are provided on the bottom of this form for your review. Please check appropriate box(es) to clarify if the following diagnosis has been ruled in our ruled out: [ x ] Viral Sepsis due to COVID-19 Pneumonia RULED IN [ ] COVID-19 Pneumonia Viral Sepsis RULED OUT [ ] Cannot rule out Viral Sepsis diagnosis [ ] Other diagnosis [ ] Unable to determine For continuity of documentation, please document condition throughout progress notes and discharge summary. Thank You. To be completed by CDI/Coding staff for physician review: CLINICAL INDICATORS - SIGNS / SYMPTOMS / LABS / RESULTS AND LOCATION IN MR 2.12 ED: *TXFR from [facility] *hypoxia and febrile at [facility] c/o cough and chills *P 63-71 *RR 19 *O2 sat 88 on RA 97% on 3LNC *T99.6 LABS: WBC 2.13 11.7 2.12 H&P (Coto/upper level ): *acute hypoxic respiratory failure and sepsis secondary to COVID-19 pneumonia *SIRS criteria have already resolved w/ oxygen supplementation RISK FACTORS / RESULTS AND LOCATION IN MR 2.12 H&P (Coto): *Acute Hyoxia Respiratory Failure 2/2 COVID Pneumonia *ESRD on HD *DM2 *HTN TREATMENTS / RESULTS AND LOCATION IN MR 2.12 H&P (Coto): * s/p Rocephin and Doxycyclin in ED *start daily decadron 6mg and convalescent plasma *does not qualify for remdesevir due to ESRD *Oxygen 3L NC CDS Signature: Tasha Fernandze RN, CCDS Phone #:[phone] [email or web address] This is a permanent part of the Medical Record [facility]
--- NOTE | 2020-04-04 14:24 | PRG ---
DATE OF SERVICE: 04/04/2020 SUBJECTIVE: Patient was seen and examined at bedside and overnight events noted. Patient denies any shortness of breath or chest pain or palpitation. No history of nausea or vomiting or diarrhea or fever or chills or cramps. OBJECTIVE: GENERAL: This is a well-built male, in no apparent distress. VITAL SIGNS: Temperature 97.7. Heart rate 76. Respiratory rate 18. Blood pressure 93/61. HEENT: Atraumatic, normocephalic. Oral mucosa is moist. NECK: Supple. CARDIOVASCULAR: S1, S2 heard. Rate and rhythm regular. RESPIRATORY: Clear to auscultation. GASTROINTESTINAL: Abdomen is soft. MUSCULOSKELETAL: No tenderness. No edema. DERMATOLOGIC: No skin rash. NEUROLOGIC: Alert and awake and oriented x3. No focal neurologic deficits. Moving all the extremities. PSYCHIATRIC: Mood and affect normal. LABORATORY DATA: Not done today. ASSESSMENT AND PLAN: 1. End-stage renal disease. Continue dialysis on TTS. 2. Hyperkalemia. Limit potassium intake. 3. Hyponatremia. 4. Edema. 5. Hypertension. 6. COVID-19 pneumonia. 7. Acute hypoxic respiratory failure. Continue dialysis as tolerated. Job ID: [id number]
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
--- NOTE | 2020-04-06 17:14 | EKG ---
Test Reason : Blood Pressure : / mmHG Vent. Rate : 062 BPM Atrial Rate : 062 BPM P-R Int : 168 ms QRS Dur : 092 ms QT Int : 484 ms P-R-T Axes : 052 048 062 degrees QTc Int : 491 ms Normal sinus rhythm Possible Left atrial enlargement Prolonged QT Abnormal ECG Confirmed by SHAHIDA HOLM DO ([id number]), features editor ASPEN ANAYA ([id number]) on 04/06/2020 5:14:10 PM Referred By: Confirmed By:SHAHIDA HOLM DO
== END 2020-04-04 15:46 | disposition home or self-care (01) | DRG 871 ==
LOC: ERS 14:58 → T4-A 15:47
PROVIDERS: ADMIT Family Medicine; ATTEND Family Medicine
PROC: XW13325 Transfusion of Convalescent Plasma (Nonautologous) into Peripheral Vein, Percutaneous Approach, New Technology Group 5 (ICD-10-PCS; principal; 2020-03-29)
PROC: 8E0ZXY6 Isolation (ICD-10-PCS; 2020-03-29)
PROC: 5A1D70Z Performance of Urinary Filtration, Intermittent, Less than 6 Hours Per Day (ICD-10-PCS; 2020-03-30)
DX: A41.89 Other specified sepsis (principal); U07.1 COVID-19; J12.82 Pneumonia due to coronavirus disease 2019; J96.01 Acute respiratory failure with hypoxia; N18.6 End stage renal disease; I12.0 Hypertensive chronic kidney disease with stage 5 chronic kidney disease or end stage renal disease; E87.1 Hypo-osmolality and hyponatremia; E78.5 Hyperlipidemia, unspecified; F32.9 Major depressive disorder, single episode, unspecified; E11.22 Type 2 diabetes mellitus with diabetic chronic kidney disease; E87.5 Hyperkalemia; E11.40 Type 2 diabetes mellitus with diabetic neuropathy, unspecified; D63.1 Anemia in chronic kidney disease; Z79.899 Other long term (current) drug therapy; Z99.2 Dependence on renal dialysis; Z79.4 Long term (current) use of insulin; Z79.52 Long term (current) use of systemic steroids
CPT/HCPCS: 0240U; 36415; 36416; 36430; 71045; 80048; 80053; 82728; 83615; 83880; 84145; 85025; 85379; 86140; 86850; 86900; 86901; 87340; 90935; 93005; G0257; J0456; J0696; J1644; J1815; J3490; J7050; J8540; P9017; Q0169

== ENCOUNTER 2020-07-07 17:50 | Emergency (ER) | payer OTHER, MEDICARE ==
[2020-07-07] MEDS ORDERED: HYDROcodone/Acetaminophen 7.5/325 mg Tablet ONE ×2 (18:13→18:14)
== END 2020-07-07 19:24 | disposition home or self-care (01) ==
LOC: ERS 17:50
DX: S16.1XXA Strain of muscle, fascia and tendon at neck level, initial encounter (principal); S39.012A Strain of muscle, fascia and tendon of lower back, initial encounter; E11.9 Type 2 diabetes mellitus without complications; E78.5 Hyperlipidemia, unspecified; I10 Essential (primary) hypertension; Z79.4 Long term (current) use of insulin; Z79.899 Other long term (current) drug therapy; V49.9XXA Car occupant (driver) (passenger) injured in unspecified traffic accident, initial encounter
CPT/HCPCS: 72072; 72100; 72125

== ENCOUNTER 2023-07-13 04:50 | Inpatient (IN) | payer OTHER ==
[2023-07-13 05:42] LABS: ALT (SGPT) 12 U/L (8-55); AST (SGOT) 9 U/L (5-34); Albumin 2.9 g/dL (3.5-5.0); Alkaline Phosphatase 58 U/L (40-110); Anion Gap 28 mmol/L (10-20); BUN (Urea Nitrogen) 79 mg/dL (8.4-25.7); Bilirubin, Total 0.4 mg/dL (0.2-1.2); Calc. Creatinine Clearance 0 mL/min (70-130); Calcium 10.4 mg/dL (7.8-10.44); Carbon Dioxide 21 mmol/L (22-29); Chloride 98 mmol/L (98-107); Estimated GFR 5; Globulin 4.5 g/dL (2.4-3.5); Glucose 227 mg/dL (70-105); Potassium 6.3 mmol/L (3.5-5.1); Protein, Total 7.4 g/dL (6.0-8.3); Sodium 141 mmol/L (136-145)
[2023-07-13 05:45] LABS: Troponin I 0.173 ng/mL (< 0.028)
[2023-07-13] MEDS ORDERED: Sodium Bicarb 50 mEq/50 ML VIAL ONE (05:48)
[2023-07-13] MEDS ORDERED: CALCIUM GLUC 1 GM (50 ML) BAG ONE (05:48)
[2023-07-13] MEDS ORDERED: Aspirin Chewable 81 MG TAB ONE (05:57)
[2023-07-13 06:01] LABS: HBSAB Concentration 30.08 mIU/mL; HBsAg Index 0.26 S/CO (0-0.99); Hep B Core Total Ab NONREACTIVE (NonReactive); Hep B Core Total Index 0.11 S/CO (0-0.79); Hep B Surf AB REACTIVE (NonReactive); Hep B Surf Ag NONREACTIVE S/CO (NonReactive); Hep C IgG Ab NONREACTIVE S/CO (NonReactive); Hep C Index 0.12 S/CO (0-0.79)
[2023-07-13] MEDS ORDERED: Ondansetron PF 4 MG/2 ML Vial IVP PRN (07:17)
[2023-07-13] MEDS ORDERED: Ondansetron ODT 4 MG TAB PO PRN (07:17)
[2023-07-13] MEDS ORDERED: Acetaminophen 650 MG Suppository PR PRN (07:17)
[2023-07-13 09:18] LABS: Troponin I 0.214 ng/mL (< 0.028)
[2023-07-13] MEDS ORDERED: Heparin 10,000 UNITS/ 10 ML VIAL ONE (09:34)
[2023-07-13] MEDS ORDERED: Dextrose 50% Abboject 50 ML SYRINGE SLOW IVP PRN (10:35)
[2023-07-13] MEDS ORDERED: Glucagon 1 MG/ML KIT IM PRN (10:35)
[2023-07-13] MEDS ORDERED: Insulin Regular 300 UNITS/3 ML VIAL SC PRN ×2 (10:35)
[2023-07-13] MEDS ORDERED: Dextrose 5% in Water 1,000 ML IV PRN (10:35)
[2023-07-13] MEDS ORDERED: Insulin Regular, Human 100 UNIT/ML 10 ML VIAL SC PRN (10:43)
[2023-07-13 12:16] VITALS: BMI 43.7
[2023-07-13] MEDS: Insulin Regular, Human 100 UNIT/ML 10 ML VIAL SC PRN ×2 (12:26→20:57)
[2023-07-13 13:58] LABS: Troponin I 0.262 ng/mL (< 0.028)
[2023-07-13 14:54] LABS: Anion Gap 17 mmol/L (10-20); BUN (Urea Nitrogen) 28 mg/dL (8.4-25.7); Calc. Creatinine Clearance 23 mL/min (70-130); Calcium 9.8 mg/dL (7.8-10.44); Carbon Dioxide 29 mmol/L (22-29); Chloride 94 mmol/L (98-107); Estimated GFR 10; Glucose 248 mg/dL (70-105); Potassium 5.1 mmol/L (3.5-5.1); Sodium 135 mmol/L (136-145)
[2023-07-13] MEDS: Acetaminophen 325 MG TAB PO PRN (16:19)
[2023-07-13] MEDS: hydrALAZINE 25 MG TAB PO SCH ×2 (16:20→20:56)
[2023-07-13] MEDS: Amlodipine 5 MG TAB PO SCH (16:20)
[2023-07-13] MEDS: Senokot S 8.6-50 MG TAB PO PRN (16:25)
[2023-07-13] MEDS: Mometasone 200 MCG/Formoterol 5 MCG 120 PUFF INHALER INH SCH (18:58)
[2023-07-13] MEDS: Montelukast Sodium 10 mg Tablet PO SCH (20:54)
[2023-07-13] MEDS: Benzonatate 100 MG CAP PO SCH (20:56)
[2023-07-13] MEDS: Insulin Glargine 30 UNITS/0.3 ML VIAL SC SCH (20:57)
[2023-07-13] MEDS: Heparin 5,000 UNITS/ML VIAL SC SCH (20:59)
[2023-07-13] MEDS ORDERED: Non-Formulary Item 1 EACH (Fluticasone Propion/Salmeterol [Advair Diskus 250/50] 1 EACH B IH SCH (21:00)
[2023-07-13] MEDS ORDERED: Insulin Glargine 30 UNITS/0.3 ML VIAL SC SCH (21:00)
[2023-07-13] MEDS: Sodium Chloride 0.65% Nasal 44 ML BOT EA NARE PRN (23:10)
[2023-07-14] MEDS ORDERED: Albuterol 200 PUFF (6.7GM INHALER) INH PRN (03:27)
[2023-07-14] MEDS: Ipratropium/Albuterol 3 ML NEB NEB PRN (03:48)
[2023-07-14 05:00] LABS: #Basophils 0.05 10x3/uL (0.0-0.2); %Basophils 0.4 % (0.0-1.0); %Eosinophils 2.5 % (0.0-10.0); %Monocytes 9.5 % (0.0-10.0); %Neutrophils 72.3 % (42.0-75.0); Hematocrit 38.9 % (42.0-52.0); Hemoglobin 12.5 g/dL (14.0-18.0); Mean Corpuscular HGB CONC 32.1 g/dL (32.0-36.0); Mean Corpuscular Hemoglobin 30.2 pg (27.0-31.0); Platelet Count 287 10x3/uL (130-400); Red Blood Cell (RBC) Count 4.14 mill/uL (4.70-6.10)
[2023-07-14 05:24] LABS: Anion Gap 23 mmol/L (10-20); BUN (Urea Nitrogen) 47 mg/dL (8.4-25.7); Calc. Creatinine Clearance 19 mL/min (70-130); Calcium 9.9 mg/dL (7.8-10.44); Carbon Dioxide 24 mmol/L (22-29); Chloride 97 mmol/L (98-107); Estimated GFR 8; Glucose 232 mg/dL (70-105); Potassium 6.1 mmol/L (3.5-5.1); Sodium 138 mmol/L (136-145)
[2023-07-14 06:43] LABS: Potassium 5.7 mmol/L (3.5-5.1)
[2023-07-14] MEDS: Atorvastatin Calcium 40 MG TAB PO SCH (14:22)
[2023-07-14] MEDS: Aspirin 81 mg Enteric Coated Tablet PO SCH (14:22)
[2023-07-14] MEDS: Losartan 25 MG TAB PO SCH (14:22)
[2023-07-14] MEDS: diphenhydrAMINE 50 MG/ML VIAL IVP SCH (20:24)
[2023-07-14] MEDS: Bisacodyl 5 MG TAB PO PRN (21:00)
[2023-07-15 04:26] LABS: #Basophils 0.07 10x3/uL (0.0-0.2); %Basophils 0.7 % (0.0-1.0); %Eosinophils 1.7 % (0.0-10.0); %Lymphocytes 32.5 % (21.0-51.0); %Monocytes 9.3 % (0.0-10.0); %Neutrophils 55.6 % (42.0-75.0); Hematocrit 42.7 % (42.0-52.0); Hemoglobin 13.7 g/dL (14.0-18.0); Mean Corpuscular HGB CONC 32.1 g/dL (32.0-36.0); Mean Corpuscular Hemoglobin 29.5 pg (27.0-31.0); Mean Corpuscular Volume 91.8 fL (78.0-98.0); Platelet Count 311 10x3/uL (130-400); RBC Distribution Width 14.8 % (11.5-14.5); Red Blood Cell (RBC) Count 4.65 mill/uL (4.70-6.10)
[2023-07-15 04:39] LABS: Anion Gap 22 mmol/L (10-20); BUN (Urea Nitrogen) 36 mg/dL (8.4-25.7); Calc. Creatinine Clearance 24 mL/min (70-130); Calcium 10.1 mg/dL (7.8-10.44); Carbon Dioxide 26 mmol/L (22-29); Chloride 95 mmol/L (98-107); Estimated GFR 10; Glucose 238 mg/dL (70-105); Potassium 4.6 mmol/L (3.5-5.1); Sodium 138 mmol/L (136-145)
[2023-07-15] MEDS ORDERED: Regadenoson 0.4 MG/5 ML SYRINGE ONE (09:17)
[2023-07-15] MEDS: Carvedilol 6.25 MG TAB PO SCH (10:44)
[2023-07-15] MEDS: HumaLOG 300 UNITS/3 ML VIAL SC PRN (11:07)
[2023-07-15] MEDS: diphenhydrAMINE 25 MG CAP PO SCH (18:09)
[2023-07-15] MEDS: QUEtiapine 25 MG TAB PO SCH (20:32)
[2023-07-16 04:23] LABS: #Basophils 0.07 10x3/uL (0.0-0.2); %Basophils 0.8 % (0.0-1.0); %Eosinophils 1.8 % (0.0-10.0); %Lymphocytes 21.8 % (21.0-51.0); %Monocytes 11.6 % (0.0-10.0); %Neutrophils 63.8 % (42.0-75.0); Hematocrit 45.6 % (42.0-52.0); Hemoglobin 14.3 g/dL (14.0-18.0); Mean Corpuscular HGB CONC 31.4 g/dL (32.0-36.0); Mean Corpuscular Hemoglobin 29.4 pg (27.0-31.0); Mean Corpuscular Volume 93.8 fL (78.0-98.0); Mean Platelet Volume 12.1 fL (7.4-10.4); Platelet Count 308 10x3/uL (130-400); RBC Distribution Width 14.6 % (11.5-14.5); Red Blood Cell (RBC) Count 4.86 mill/uL (4.70-6.10)
[2023-07-16 04:47] LABS: Anion Gap 18 mmol/L (10-20); BUN (Urea Nitrogen) 23 mg/dL (8.4-25.7); Calc. Creatinine Clearance 31 mL/min (70-130); Calcium 10.6 mg/dL (7.8-10.44); Carbon Dioxide 26 mmol/L (22-29); Chloride 97 mmol/L (98-107); Estimated GFR 14; Glucose 224 mg/dL (70-105); Potassium 4.3 mmol/L (3.5-5.1); Sodium 137 mmol/L (136-145)
[2023-07-16 12:38] VITALS: TEMP 97.9
[2023-07-16 12:53] VITALS: BP 113/76
== END 2023-07-16 14:03 | disposition home or self-care (01) | DRG 640 ==
LOC: ERS 04:50 → 2SW 10:31 → OBSVTOIN 07-15 15:55
PROVIDERS: ADMIT Hospitalist; ATTEND Internal Medicine
DX: E87.70 Fluid overload, unspecified (principal); J96.01 Acute respiratory failure with hypoxia; N18.6 End stage renal disease; I12.0 Hypertensive chronic kidney disease with stage 5 chronic kidney disease or end stage renal disease; E87.5 Hyperkalemia; J45.909 Unspecified asthma, uncomplicated; E11.22 Type 2 diabetes mellitus with diabetic chronic kidney disease; E78.5 Hyperlipidemia, unspecified; I25.10 Atherosclerotic heart disease of native coronary artery without angina pectoris; Z95.0 Presence of cardiac pacemaker; Z79.82 Long term (current) use of aspirin; Z79.899 Other long term (current) drug therapy; Z79.4 Long term (current) use of insulin; Z90.49 Acquired absence of other specified parts of digestive tract
CPT/HCPCS: 36415; 36416; 78452; 80048; 83880; 84484; 85025; 86704; 86706; 86803; 87340; 90935; 93005; 93010; 93017; 93306; 94640; 94664; 96374; 96375; A9502; G0257; J0613; J1200; J1644; J1815; J2785; J7620

== ENCOUNTER 2024-02-27 23:58 | Inpatient (IN) | payer OTHER ==
[2024-02-28] MEDS ORDERED: niCARdipine 25 MG/10 ML SDV ONE (00:13)
[2024-02-28] MEDS ORDERED: Morphine 4 MG/ML VIAL ONE (00:29)
[2024-02-28] MEDS ORDERED: Ondansetron PF 4 MG/2 ML Vial ONE (00:30)
[2024-02-28] MEDS ORDERED: Insulin Regular, Human 100 UNIT/ML 10 ML VIAL ONE (00:35)
[2024-02-28] MEDS ORDERED: Dextrose 50% Abboject 50 ML SYRINGE SLOW IVP PRN (01:29)
[2024-02-28] MEDS ORDERED: Glucagon 1 MG/ML KIT IM PRN (01:29)
[2024-02-28] MEDS ORDERED: Dextrose 5% in Water 1,000 ML IV PRN (01:29)
[2024-02-28] MEDS ORDERED: Albuterol 2.5 MG (3 mL) NEB NEB PRN (01:51)
[2024-02-28 02:19] VITALS: BMI 45.3
[2024-02-28 03:40] LABS: #Basophils 0.12 10x3/uL (0.0-0.2); %Eosinophils 3.3 % (0.0-10.0); %Lymphocytes 20.4 % (21.0-51.0); %Neutrophils 64.8 % (42.0-75.0); Hematocrit 36.5 % (42.0-52.0); Hemoglobin 11.2 g/dL (14.0-18.0); Mean Corpuscular HGB CONC 30.7 g/dL (32.0-36.0); Mean Corpuscular Hemoglobin 27.5 pg (27.0-31.0); Mean Corpuscular Volume 89.7 fL (78.0-98.0); Mean Platelet Volume 11.8 fL (7.4-10.4); Platelet Count 418 10x3/uL (130-400); RBC Distribution Width 14.4 % (11.5-14.5); Red Blood Cell (RBC) Count 4.07 mill/uL (4.70-6.10)
[2024-02-28] MEDS: niCARdipine 25 MG in Sodium Chloride 0.9% 250 ML 250 ML IVPB SCH (03:45)
[2024-02-28 03:58] LABS: Hemoglobin A1c 10.6 % (4.0-6.0)
[2024-02-28 04:00] LABS: INR-International Normal Ratio 1.1; Prothrombin Time 13.8 sec (12.0-14.7)
[2024-02-28 04:01] LABS: PTT 37.7 sec (22.9-36.1)
[2024-02-28 04:08] LABS: Anion Gap 19 mmol/L (10-20); BUN (Urea Nitrogen) 31 mg/dL (8.4-25.7); Calc. Creatinine Clearance 18 mL/min (70-130); Calcium 10.4 mg/dL (7.8-10.44); Carbon Dioxide 27 mmol/L (22-29); Chloride 95 mmol/L (98-107); Estimated GFR 7; Glucose 455 mg/dL (70-105); Potassium 4.9 mmol/L (3.5-5.1); Sodium 136 mmol/L (136-145)
[2024-02-28] MEDS: Insulin Lispro 100 UNIT/ML 10 ML VIAL SC PRN (04:13)
[2024-02-28] MEDS: FLU (Fluarix Triv) TS24-25(6MOS UP)/PF 45 MCG/0.5 ML Syringe IM ONE (08:02)
[2024-02-28 08:54] LABS: Magnesium 2.4 mg/dL (1.6-2.6); Phosphorus 4.9 mg/dL (2.3-4.7)
[2024-02-28] MEDS: Acetaminophen 325 MG TAB PO PRN (09:54)
[2024-02-28] MEDS ORDERED: PHENYTOIN IVPB SCH (10:00)
[2024-02-28] MEDS ORDERED: SODIUM CHLORIDE 0.9% IVPB SCH (10:00)
[2024-02-28] MEDS: Fosphenytoin Sodium 2,000 MG in Sodium Chloride 0.9% 100 ML IVPB SCH (11:17)
[2024-02-28] MEDS: Fosphenytoin Sodium 100 MG in Sodium Chloride 0.9% 50 ML IVPB SCH (21:49)
[2024-02-29] MEDS: diphenhydrAMINE 25 MG CAP PO SCH (03:35)
[2024-02-29 06:06] LABS: #Basophils 0.12 10x3/uL (0.0-0.2); %Basophils 0.9 % (0.0-1.0); %Eosinophils 4.7 % (0.0-10.0); %Lymphocytes 14.4 % (21.0-51.0); %Monocytes 8.2 % (0.0-10.0); %Neutrophils 71.3 % (42.0-75.0); Hematocrit 37.8 % (42.0-52.0); Hemoglobin 11.8 g/dL (14.0-18.0); Mean Corpuscular HGB CONC 31.2 g/dL (32.0-36.0); Mean Corpuscular Hemoglobin 27.9 pg (27.0-31.0); Mean Corpuscular Volume 89.4 fL (78.0-98.0); Mean Platelet Volume 11.8 fL (7.4-10.4); Platelet Count 404 10x3/uL (130-400); RBC Distribution Width 14.2 % (11.5-14.5); Red Blood Cell (RBC) Count 4.23 mill/uL (4.70-6.10)
[2024-02-29 06:23] LABS: Anion Gap 19 mmol/L (10-20); BUN (Urea Nitrogen) 37 mg/dL (8.4-25.7); Calc. Creatinine Clearance 15 mL/min (70-130); Calcium 9.8 mg/dL (7.8-10.44); Carbon Dioxide 24 mmol/L (22-29); Chloride 100 mmol/L (98-107); Estimated GFR 6; Glucose 243 mg/dL (70-105); Potassium 5.3 mmol/L (3.5-5.1); Sodium 138 mmol/L (136-145)
[2024-02-29] MEDS ORDERED: traMADol HCl 50 MG TAB PO PRN (09:16)
[2024-02-29] MEDS: Morphine 2 MG/ML VIAL SLOW IVP PRN (11:48)
[2024-02-29 19:48] LABS: Dilantin 7.5 ug/mL (10.0-20.0)
[2024-02-29] MEDS: levETIRAcetam 500 MG (5 mL) VIAL SLOW IVP SCH (21:56)
[2024-02-29] MEDS: Labetalol HCl 100 MG/20 ML VIAL SLOW IVP PRN (22:35)
[2024-03-01] MEDS: hydrALAZINE 20 MG/ML VIAL SLOW IVP PRN (00:04)
[2024-03-01] MEDS ORDERED: niCARdipine 50 MG, Admixture Fee 1 EACH in Sodium Chloride 0.9% 250 ML 230 ML IV SCH (02:00)
[2024-03-01 05:36] LABS: #Basophils 0.11 10x3/uL (0.0-0.2); %Basophils 0.8 % (0.0-1.0); %Eosinophils 3.1 % (0.0-10.0); %Lymphocytes 12.6 % (21.0-51.0); %Monocytes 9.7 % (0.0-10.0); %Neutrophils 73.1 % (42.0-75.0); Hematocrit 32.8 % (42.0-52.0); Mean Corpuscular HGB CONC 30.5 g/dL (32.0-36.0); Mean Corpuscular Hemoglobin 27.6 pg (27.0-31.0); Mean Corpuscular Volume 90.6 fL (78.0-98.0); Mean Platelet Volume 12.1 fL (7.4-10.4); Platelet Count 367 10x3/uL (130-400); RBC Distribution Width 14.6 % (11.5-14.5); Red Blood Cell (RBC) Count 3.62 mill/uL (4.70-6.10)
[2024-03-01 06:24] LABS: Anion Gap 17 mmol/L (10-20); BUN (Urea Nitrogen) 25 mg/dL (8.4-25.7); Calc. Creatinine Clearance 19 mL/min (70-130); Calcium 9.4 mg/dL (7.8-10.44); Carbon Dioxide 27 mmol/L (22-29); Chloride 97 mmol/L (98-107); Estimated GFR 8; Glucose 188 mg/dL (70-105); Sodium 136 mmol/L (136-145)
[2024-03-01] MEDS: Dexmedetomidine In 0.9 % NaCl 100 ML IVPB SCH (06:34)
[2024-03-01] MEDS: levETIRAcetam 500 MG (5 mL) VIAL SLOW IVP SCH ×3 (09:39→20:27)
[2024-03-01] MEDS ORDERED: Lorazepam 2 MG/ML VIAL SLOW IVP SCH (10:45)
[2024-03-01] MEDS: hydrOXYzine 25 MG TAB PO SCH (11:39)
[2024-03-01] MEDS: Lorazepam 2 MG/ML VIAL SLOW IVP SCH (11:51)
[2024-03-02 05:15] LABS: Anion Gap 21 mmol/L (10-20); BUN (Urea Nitrogen) 36 mg/dL (8.4-25.7); Calc. Creatinine Clearance 15 mL/min (70-130); Calcium 10.2 mg/dL (7.8-10.44); Carbon Dioxide 23 mmol/L (22-29); Chloride 98 mmol/L (98-107); Estimated GFR 6; Glucose 131 mg/dL (70-105); Potassium 5.9 mmol/L (3.5-5.1); Sodium 136 mmol/L (136-145)
[2024-03-02] MEDS: EPOETIN ALFA-EPBX (ESRD) 10,000 UNITS/ML VIAL IVP SCH (12:25)
[2024-03-02] MEDS: Ondansetron PF 4 MG/2 ML Vial IVP PRN (17:52)
[2024-03-03 04:30] LABS: #Basophils 0.12 10x3/uL (0.0-0.2); %Basophils 0.9 % (0.0-1.0); %Eosinophils 1.1 % (0.0-10.0); %Lymphocytes 18.8 % (21.0-51.0); %Monocytes 12.5 % (0.0-10.0); %Neutrophils 65.6 % (42.0-75.0); Hematocrit 37.2 % (42.0-52.0); Hemoglobin 11.3 g/dL (14.0-18.0); Mean Corpuscular HGB CONC 30.4 g/dL (32.0-36.0); Mean Corpuscular Hemoglobin 27.2 pg (27.0-31.0); Mean Corpuscular Volume 89.4 fL (78.0-98.0); Mean Platelet Volume 12.2 fL (7.4-10.4); Platelet Count 382 10x3/uL (130-400); Red Blood Cell (RBC) Count 4.16 mill/uL (4.70-6.10)
[2024-03-03 04:45] LABS: Anion Gap 24 mmol/L (10-20); BUN (Urea Nitrogen) 24 mg/dL (8.4-25.7); Calc. Creatinine Clearance 22 mL/min (70-130); Calcium 10.5 mg/dL (7.8-10.44); Carbon Dioxide 23 mmol/L (22-29); Chloride 97 mmol/L (98-107); Estimated GFR 9; Glucose 187 mg/dL (70-105); Potassium 4.7 mmol/L (3.5-5.1); Sodium 139 mmol/L (136-145)
[2024-03-03] MEDS: Amlodipine 5 MG TAB PO SCH (13:29)
[2024-03-03] MEDS ORDERED: Bisacodyl 10 MG SUPP PR PRN (20:09)
[2024-03-03] MEDS: Senokot S 8.6-50 MG TAB PO PRN (21:40)
[2024-03-03] MEDS: traMADol HCl 50 MG TAB PO PRN (23:57)
[2024-03-04 03:55] LABS: #Basophils 0.12 10x3/uL (0.0-0.2); %Basophils 0.9 % (0.0-1.0); %Eosinophils 1.5 % (0.0-10.0); %Lymphocytes 15.1 % (21.0-51.0); %Monocytes 12.8 % (0.0-10.0); %Neutrophils 68.6 % (42.0-75.0); Hematocrit 38.5 % (42.0-52.0); Hemoglobin 11.8 g/dL (14.0-18.0); Mean Corpuscular HGB CONC 30.6 g/dL (32.0-36.0); Mean Corpuscular Hemoglobin 27.4 pg (27.0-31.0); Mean Corpuscular Volume 89.3 fL (78.0-98.0); Mean Platelet Volume 11.7 fL (7.4-10.4); Platelet Count 341 10x3/uL (130-400); RBC Distribution Width 14.9 % (11.5-14.5); Red Blood Cell (RBC) Count 4.31 mill/uL (4.70-6.10)
[2024-03-04 04:34] LABS: Anion Gap 25 mmol/L (10-20); BUN (Urea Nitrogen) 34 mg/dL (8.4-25.7); Calc. Creatinine Clearance 17 mL/min (70-130); Calcium 10.8 mg/dL (7.8-10.44); Carbon Dioxide 21 mmol/L (22-29); Chloride 97 mmol/L (98-107); Estimated GFR 7; Glucose 281 mg/dL (70-105); Potassium 4.4 mmol/L (3.5-5.1); Sodium 139 mmol/L (136-145)
[2024-03-04] MEDS: Amlodipine 5 MG TAB PO SCH (09:51)
[2024-03-04] MEDS: levETIRAcetam 500 MG (5 mL) VIAL SLOW IVP SCH ×2 (09:57→16:41)
[2024-03-05 04:28] LABS: %Basophils 0.9 % (0.0-1.0); %Eosinophils 2.9 % (0.0-10.0); %Lymphocytes 21.4 % (21.0-51.0); %Neutrophils 62.8 % (42.0-75.0); Hematocrit 39.7 % (42.0-52.0); Hemoglobin 12.2 g/dL (14.0-18.0); Mean Corpuscular HGB CONC 30.7 g/dL (32.0-36.0); Mean Corpuscular Hemoglobin 27.2 pg (27.0-31.0); Mean Corpuscular Volume 88.6 fL (78.0-98.0); Mean Platelet Volume 11.7 fL (7.4-10.4); Platelet Count 319 10x3/uL (130-400); RBC Distribution Width 14.8 % (11.5-14.5); Red Blood Cell (RBC) Count 4.48 mill/uL (4.70-6.10)
[2024-03-05 04:47] LABS: Anion Gap 23 mmol/L (10-20); BUN (Urea Nitrogen) 23 mg/dL (8.4-25.7); Calc. Creatinine Clearance 23 mL/min (70-130); Calcium 11.1 mg/dL (7.8-10.44); Carbon Dioxide 22 mmol/L (22-29); Chloride 98 mmol/L (98-107); Estimated GFR 10; Glucose 240 mg/dL (70-105); Potassium 4.5 mmol/L (3.5-5.1); Sodium 138 mmol/L (136-145)
[2024-03-05] MEDS: Insulin Lispro 100 UNIT/ML 10 ML VIAL SC PRN (21:27)
[2024-03-06 04:27] LABS: Anion Gap 22 mmol/L (10-20); BUN (Urea Nitrogen) 36 mg/dL (8.4-25.7); Calc. Creatinine Clearance 17 mL/min (70-130); Calcium 11.4 mg/dL (7.8-10.44); Carbon Dioxide 23 mmol/L (22-29); Chloride 99 mmol/L (98-107); Estimated GFR 7; Glucose 281 mg/dL (70-105); Potassium 4.5 mmol/L (3.5-5.1); Sodium 139 mmol/L (136-145)
[2024-03-06] MEDS ORDERED: Baclofen 10 MG TAB PO PRN (09:19)
[2024-03-06] MEDS: Amlodipine 5 MG TAB PO SCH (12:34)
[2024-03-06 19:44] LABS: ALT (SGPT) 22 U/L (8-55); AST (SGOT) 14 U/L (5-34); Albumin 2.7 g/dL (3.5-5.0); Alkaline Phosphatase 63 U/L (40-110); Bilirubin, Direct 0.1 mg/dL (0.1-0.3); Bilirubin, Total 0.3 mg/dL (0.2-1.2); Protein, Total 7.6 g/dL (6.0-8.3)
[2024-03-06] MEDS: Insulin Glargine 30 UNITS/0.3 ML VIAL SC SCH (21:50)
[2024-03-06] MEDS: Baclofen 10 MG TAB PO SCH (21:50)
[2024-03-06 22:09] VITALS: BMI 42.6
[2024-03-07 04:17] LABS: ALT (SGPT) 17 U/L (8-55); AST (SGOT) 10 U/L (5-34); Albumin 2.6 g/dL (3.5-5.0); Alkaline Phosphatase 60 U/L (40-110); Anion Gap 23 mmol/L (10-20); BUN (Urea Nitrogen) 48 mg/dL (8.4-25.7); Bilirubin, Total 0.3 mg/dL (0.2-1.2); Calc. Creatinine Clearance 13 mL/min (70-130); Calcium 11.3 mg/dL (7.8-10.44); Carbon Dioxide 24 mmol/L (22-29); Chloride 98 mmol/L (98-107); Estimated GFR 5; Globulin 4.7 g/dL (2.4-3.5); Glucose 385 mg/dL (70-105); Magnesium 2.8 mg/dL (1.6-2.6); Potassium 4.9 mmol/L (3.5-5.1); Protein, Total 7.3 g/dL (6.0-8.3); Sodium 140 mmol/L (136-145)
[2024-03-07] MEDS: Atorvastatin Calcium 40 MG TAB PO SCH (14:22)
[2024-03-07] MEDS: Amlodipine 10 MG TAB PO SCH (14:22)
[2024-03-07] MEDS: Sevelamer Carbonate 800 MG TAB PO SCH (14:23)
[2024-03-07] MEDS: Tetrahydrozoline 0.05% OPTH 15 ML BOT EA EYE SCH (22:30)
[2024-03-07] MEDS: diphenhydrAMINE 25 MG CAP PO SCH (22:39)
[2024-03-08 04:28] LABS: ALT (SGPT) 17 U/L (Less than 45); AST (SGOT) 16 U/L (11-34); Albumin 2.8 g/dL (3.1-4.5); Alkaline Phosphatase 72 U/L (40-110); Anion Gap 21 mmol/L (10-20); BUN (Urea Nitrogen) 32 mg/dL (8.4-25.7); Bilirubin, Total 0.3 mg/dL (0.3-1.2); Calc. Creatinine Clearance 22 mL/min (70-130); Calcium 10.9 mg/dL (7.8-10.44); Carbon Dioxide 26 mmol/L (22-29); Chloride 96 mmol/L (98-107); Estimated GFR 9; Globulin 4.9 g/dL (2.4-3.5); Glucose 290 mg/dL (70-105); Magnesium 2.4 mg/dL (1.6-2.6); Potassium 4.1 mmol/L (3.5-5.1); Protein, Total 7.7 g/dL (6.0-8.3); Sodium 139 mmol/L (136-145)
[2024-03-08] MEDS: Tetrahydrozoline 0.05% OPTH 15 ML BOT EA EYE SCH (09:44)
[2024-03-08] MEDS: Insulin Lispro 100 UNIT/ML 10 ML VIAL SC PRN (12:40)
[2024-03-08] MEDS: Insulin Glargine 30 UNITS/0.3 ML VIAL SC SCH (20:24)
[2024-03-09 04:43] LABS: ALT (SGPT) 14 U/L (Less than 45); AST (SGOT) 12 U/L (11-34); Albumin 2.9 g/dL (3.1-4.5); Alkaline Phosphatase 76 U/L (40-110); Anion Gap 24 mmol/L (10-20); BUN (Urea Nitrogen) 50 mg/dL (8.4-25.7); Bilirubin, Total 0.3 mg/dL (0.3-1.2); Calc. Creatinine Clearance 16 mL/min (70-130); Calcium 11.7 mg/dL (7.8-10.44); Carbon Dioxide 24 mmol/L (22-29); Chloride 96 mmol/L (98-107); Estimated GFR 6; Globulin 4.8 g/dL (2.4-3.5); Glucose 296 mg/dL (70-105); Magnesium 2.7 mg/dL (1.6-2.6); Potassium 4.3 mmol/L (3.5-5.1); Protein, Total 7.7 g/dL (6.0-8.3); Sodium 140 mmol/L (136-145)
[2024-03-09] MEDS ORDERED: Magnesium Citrate 300 ML BOT PO SCH (15:45)
[2024-03-09] MEDS: Polyethylene Glycol 3350 17 GM Packet PO SCH (17:11)
[2024-03-09] MEDS: Cinacalcet HCl 30 MG TAB PO SCH (17:11)
[2024-03-09] MEDS: Senokot S 8.6-50 MG TAB PO SCH (21:56)
[2024-03-10] MEDS: Metoclopramide HCl 10 MG (2 mL) VIAL IVP SCH (03:03)
[2024-03-10 04:39] LABS: ALT (SGPT) 13 U/L (Less than 45); AST (SGOT) 12 U/L (11-34); Alkaline Phosphatase 70 U/L (40-110); BUN (Urea Nitrogen) 33 mg/dL (8.4-25.7); Bilirubin, Total 0.3 mg/dL (0.3-1.2); Calc. Creatinine Clearance 20 mL/min (70-130); Calcium 10.7 mg/dL (7.8-10.44); Carbon Dioxide 28 mmol/L (22-29); Estimated GFR 9; Glucose 351 mg/dL (70-105); Magnesium 2.5 mg/dL (1.6-2.6)
[2024-03-10 05:32] LABS: Anion Gap 23 mmol/L (10-20); Chloride 92 mmol/L (98-107); Potassium 3.7 mmol/L (3.5-5.1); Sodium 139 mmol/L (136-145)
[2024-03-10] MEDS: Insulin Glargine 30 UNITS/0.3 ML VIAL SC SCH (08:39)
[2024-03-10] MEDS: Ergocalciferol 1.25 MG(50,000 UNITS) CAP PO SCH (08:40)
[2024-03-10 14:36] LABS: A/G Ratio 0.6 (0.7-1.7); Albumin 2.5 g/dL (2.9-4.4); Alpha 1 0.4 g/dL (0.0-0.4); Alpha 2 1.3 g/dL (0.4-1.0); Beta 1.2 g/dL (0.7-1.3); Gamma 1.2 g/dL (0.4-1.8); M-Spike Not Observed g/dL (Not Observed); Protein Electrophoresis Intrp Note: (.)
[2024-03-10] MEDS: Sevelamer 2.4 GM PACKET PO SCH (16:57)
[2024-03-11 04:34] LABS: ALT (SGPT) 10 U/L (Less than 45); AST (SGOT) 37 U/L (11-34); Albumin 2.6 g/dL (3.1-4.5); Alkaline Phosphatase 120 U/L (40-110); Anion Gap 26 mmol/L (10-20); BUN (Urea Nitrogen) 45 mg/dL (8.4-25.7); Bilirubin, Total 0.4 mg/dL (0.3-1.2); Calc. Creatinine Clearance 15 mL/min (70-130); Calcium 10.9 mg/dL (7.8-10.44); Carbon Dioxide 23 mmol/L (22-29); Chloride 93 mmol/L (98-107); Estimated GFR 6; Globulin 4.9 g/dL (2.4-3.5); Glucose 400 mg/dL (70-105); Magnesium 2.5 mg/dL (1.6-2.6); Potassium 4.3 mmol/L (3.5-5.1); Protein, Total 7.5 g/dL (6.0-8.3); Sodium 138 mmol/L (136-145)
[2024-03-11] MEDS: Insulin Regular, Human 100 UNIT/ML 10 ML VIAL IVP SCH (05:33)
[2024-03-11] MEDS: Insulin Glargine 30 UNITS/0.3 ML VIAL SC SCH (09:54)
[2024-03-11 12:05] LABS: Actual Bicarbonate (HCO3a) 25.4 mEq/L (22-28); Base Excess (BEa) 0.5 mEq/L (-2.0 to +3.0); CO2 Tension 41.9 mmHg (35.0-45.0); Carboxyhemoglobin (COHb) 1.4 gm% (0.0-3.0); Hematocrit-ABG 34 % (42.0-52.0); Hemoglobin (Hb) 11.7 g/dL (14.0-18.0); Potassium - ABG Lab 3.91 mmol/L (3.70-5.30); pH, Arterial 7.401 (7.35-7.45)
[2024-03-11 12:18] LABS: Puncture Site Right Radial artery
[2024-03-11] MEDS: Insulin Lispro 100 UNIT/ML 10 ML VIAL SC PRN (13:05)
[2024-03-12 05:10] LABS: Albumin 2.6 g/dL (3.1-4.5); Calcium 11.6 mg/dL (7.8-10.44); Chloride 95 mmol/L (98-107); Glucose 280 mg/dL (70-105); Potassium 4.1 mmol/L (3.5-5.1); Sodium 140 mmol/L (136-145)
[2024-03-12 05:49] LABS: ALT (SGPT) 12 U/L (Less than 45); AST (SGOT) 21 U/L (11-34); Alkaline Phosphatase 90 U/L (40-110); Anion Gap 23 mmol/L (10-20); BUN (Urea Nitrogen) 42 mg/dL (8.4-25.7); Bilirubin, Total 0.4 mg/dL (0.3-1.2); Calc. Creatinine Clearance 16 mL/min (70-130); Carbon Dioxide 26 mmol/L (22-29); Estimated GFR 6; Globulin 5.1 g/dL (2.4-3.5); Magnesium 2.6 mg/dL (1.6-2.6); Protein, Total 7.8 g/dL (6.0-8.3)
[2024-03-12] MEDS: Insulin Glargine 30 UNITS/0.3 ML VIAL SC SCH (11:10)
[2024-03-13 05:31] LABS: ALT (SGPT) 13 U/L (Less than 45); AST (SGOT) 23 U/L (11-34); Albumin 2.3 g/dL (3.1-4.5); Alkaline Phosphatase 81 U/L (40-110); Anion Gap 23 mmol/L (10-20); BUN (Urea Nitrogen) 60 mg/dL (8.4-25.7); Bilirubin, Total 0.3 mg/dL (0.3-1.2); Calc. Creatinine Clearance 13 mL/min (70-130); Calcium 11.1 mg/dL (7.8-10.44); Carbon Dioxide 26 mmol/L (22-29); Chloride 97 mmol/L (98-107); Estimated GFR 5; Globulin 4.9 g/dL (2.4-3.5); Glucose 235 mg/dL (70-105); Magnesium 2.5 mg/dL (1.6-2.6); Protein, Total 7.2 g/dL (6.0-8.3); Sodium 142 mmol/L (136-145)
[2024-03-13] MEDS: Ergocalciferol 1.25 MG(50,000 UNITS) CAP PO SCH (14:16)
[2024-03-13 15:38] VITALS: TEMP 98.3
[2024-03-13 18:16] VITALS: BP 157/78
[2024-03-14] MEDS ORDERED: Cinacalcet HCl 30 MG TAB PO SCH (08:00)
[2024-03-14] MEDS ORDERED: levETIRAcetam 500 MG (5 mL) VIAL SLOW IVP SCH (21:00)
== END 2024-03-13 18:22 | DRG 82 ==
LOC: ERS 23:58 → CCU 02-28 01:10 → 2SE 03-02 13:29
PROVIDERS: ADMIT Internal Medicine; ATTEND Hospitalist
PROC: 4A10X4Z Monitoring of Central Nervous Electrical Activity, External Approach (ICD-10-PCS; principal; 2024-02-28)
PROC: 30233J1 Transfusion of Nonautologous Serum Albumin into Peripheral Vein, Percutaneous Approach (ICD-10-PCS; 2024-02-28)
DX: S06.5XAA Traumatic subdural hemorrhage with loss of consciousness status unknown, initial encounter (principal); G93.5 Compression of brain; G81.94 Hemiplegia, unspecified affecting left nondominant side; N25.81 Secondary hyperparathyroidism of renal origin; I12.0 Hypertensive chronic kidney disease with stage 5 chronic kidney disease or end stage renal disease; I44.2 Atrioventricular block, complete; Z68.41 Body mass index [BMI] 40.0-44.9, adult; E66.01 Morbid (severe) obesity due to excess calories; E11.22 Type 2 diabetes mellitus with diabetic chronic kidney disease; E66.9 Obesity, unspecified; G47.33 Obstructive sleep apnea (adult) (pediatric); E11.65 Type 2 diabetes mellitus with hyperglycemia; E87.5 Hyperkalemia; E55.9 Vitamin D deficiency, unspecified; R56.9 Unspecified convulsions; F41.9 Anxiety disorder, unspecified; J45.909 Unspecified asthma, uncomplicated; E78.00 Pure hypercholesterolemia, unspecified; Z98.890 Other specified postprocedural states; Z90.49 Acquired absence of other specified parts of digestive tract; Z99.2 Dependence on renal dialysis; Z95.0 Presence of cardiac pacemaker; Z99.89 Dependence on other enabling machines and devices; W01.198A Fall on same level from slipping, tripping and stumbling with subsequent striking against other object, initial encounter
CPT/HCPCS: 36415; 36416; 36600; 70450; 70544; 70551; 71045; 71250; 74177; 80048; 80053; 80185; 80307; 82040; 82140; 82306; 82533; 82805; 83036; 83690; 83735; 83970; 84100; 84155; 84165; 84443; 84484; 85025; 85610; 85730; 90935; 93005; 93970; 94660; 94760; 95705; 95813; 96374; 96375; G0257; J0360; J1815; J1953; J2060; J2270; J2272; J2405; J2765; J7050; Q2009

== ENCOUNTER 2024-03-16 06:34 | Inpatient (IN) | payer OTHER ==
[2024-03-16 07:24] LABS: #Basophils 0.14 10x3/uL (0.0-0.2); %Basophils 0.9 % (0.0-1.0); %Eosinophils 1.6 % (0.0-10.0); %Lymphocytes 19.6 % (21.0-51.0); %Monocytes 12.7 % (0.0-10.0); %Neutrophils 63.4 % (42.0-75.0); Hematocrit 42.6 % (42.0-52.0); Mean Corpuscular HGB CONC 30.5 g/dL (32.0-36.0); Mean Corpuscular Hemoglobin 27.5 pg (27.0-31.0); Mean Corpuscular Volume 90.1 fL (78.0-98.0); Platelet Count 331 10x3/uL (130-400); RBC Distribution Width 15.9 % (11.5-14.5); Red Blood Cell (RBC) Count 4.73 mill/uL (4.70-6.10)
[2024-03-16 07:58] LABS: Troponin I 0.092 ng/mL (< 0.028)
[2024-03-16] MEDS ORDERED: Heparin 10,000 UNITS/ 10 ML VIAL ONE (09:30)
[2024-03-16 09:36] LABS: Actual Bicarbonate (HCO3v) 22.3 mEq/L (22-28); Calcium, Ionized (venous) 1.18 mmol/L (1.16-1.32); Chloride (VBG) 96 mmol/L (98-106); Hematocrit-VBG 40 % (42.0-52.0); Hemoglobin (Hb) 13.6 g/dL (13.1-17.2); Potassium (VBG) 5.01 mmol/L (3.70-5.30); Sodium 138 mmol/L (133-146)
[2024-03-16 09:56] LABS: ALT (SGPT) 21 U/L (Less than 45); AST (SGOT) 26 U/L (11-34); Albumin 2.5 g/dL (3.1-4.5); Alkaline Phosphatase 119 U/L (40-110); Anion Gap 26 mmol/L (10-20); BUN (Urea Nitrogen) 59 mg/dL (8.4-25.7); Bilirubin, Total 0.4 mg/dL (0.3-1.2); Calc. Creatinine Clearance 0 mL/min (70-130); Calcium 11.1 mg/dL (7.8-10.44); Carbon Dioxide 23 mmol/L (22-29); Chloride 96 mmol/L (98-107); Estimated GFR 5; Globulin 4.9 g/dL (2.4-3.5); Glucose 325 mg/dL (70-105); Potassium 5.2 mmol/L (3.5-5.1); Protein, Total 7.4 g/dL (6.0-8.3); Sodium 140 mmol/L (136-145)
[2024-03-16] MEDS ORDERED: Albumin 25% 25 GM (100 mL) BOT IVPB PRN (16:32)
[2024-03-16] MEDS ORDERED: Dextrose 5% in Water 1,000 ML IV PRN (16:51)
[2024-03-16] MEDS ORDERED: Dextrose 50% Abboject 50 ML SYRINGE SLOW IVP PRN (16:51)
[2024-03-16] MEDS ORDERED: Glucagon 1 MG/ML KIT IM PRN (16:51)
[2024-03-16] MEDS ORDERED: Ondansetron ODT 4 MG TAB PO PRN (20:14)
[2024-03-16 22:02] VITALS: BMI 39.5
[2024-03-16] MEDS: Cinacalcet HCl 30 MG TAB PO SCH (22:20)
[2024-03-16] MEDS: Pantoprazole 40 MG VIAL IVP SCH (22:20)
[2024-03-16] MEDS: Albumin 25% 25 GM (100 mL) BOT IVPB SCH (22:21)
[2024-03-17 05:02] LABS: #Basophils 0.14 10x3/uL (0.0-0.2); %Eosinophils 3.4 % (0.0-10.0); %Lymphocytes 15.9 % (21.0-51.0); %Monocytes 14.2 % (0.0-10.0); %Neutrophils 63.5 % (42.0-75.0); Hematocrit 37.4 % (42.0-52.0); Hemoglobin 11.1 g/dL (14.0-18.0); Mean Corpuscular HGB CONC 29.7 g/dL (32.0-36.0); Mean Corpuscular Hemoglobin 27.6 pg (27.0-31.0); Mean Platelet Volume 12.3 fL (7.4-10.4); Platelet Count 321 10x3/uL (130-400); RBC Distribution Width 15.7 % (11.5-14.5); Red Blood Cell (RBC) Count 4.02 mill/uL (4.70-6.10)
[2024-03-17 05:26] LABS: ALT (SGPT) 19 U/L (Less than 45); AST (SGOT) 36 U/L (11-34); Alkaline Phosphatase 101 U/L (40-110); Anion Gap 24 mmol/L (10-20); BUN (Urea Nitrogen) 28 mg/dL (8.4-25.7); Bilirubin, Total 0.5 mg/dL (0.3-1.2); Calc. Creatinine Clearance 22 mL/min (70-130); Carbon Dioxide 23 mmol/L (22-29); Chloride 98 mmol/L (98-107); Estimated GFR 10; Globulin 4.4 g/dL (2.4-3.5); Glucose 170 mg/dL (70-105); Protein, Total 7.4 g/dL (6.0-8.3); Sodium 141 mmol/L (136-145)
[2024-03-17] MEDS: Cinacalcet HCl 30 MG TAB PO SCH (10:07)
[2024-03-17] MEDS ORDERED: Ipratropium/Albuterol 3 ML NEB NEB PRN (11:54)
[2024-03-17] MEDS ORDERED: Amlodipine 5 MG TAB PO PRN (11:58)
[2024-03-17 13:52] LABS: Hematocrit 39.1 % (42.0-52.0); Hemoglobin 11.7 g/dL (14.0-18.0)
[2024-03-17] MEDS: Sevelamer Carbonate 800 MG TAB PO SCH (14:59)
[2024-03-17] MEDS: levETIRAcetam 500 MG TAB PO SCH (15:00)
[2024-03-17] MEDS: levETIRAcetam 500 mg/5 ml Oral Solution PO SCH (17:53)
[2024-03-17] MEDS ORDERED: levETIRAcetam 500 MG TAB PO SCH (18:00)
[2024-03-17] MEDS: Atorvastatin Calcium 40 MG TAB PO SCH (20:57)
[2024-03-18 05:55] LABS: #Basophils 0.12 10x3/uL (0.0-0.2); %Basophils 1.1 % (0.0-1.0); %Eosinophils 2.6 % (0.0-10.0); %Lymphocytes 20.9 % (21.0-51.0); %Monocytes 14.7 % (0.0-10.0); Hematocrit 38.3 % (42.0-52.0); Hemoglobin 11.4 g/dL (14.0-18.0); Mean Corpuscular HGB CONC 29.8 g/dL (32.0-36.0); Mean Corpuscular Hemoglobin 27.4 pg (27.0-31.0); Mean Corpuscular Volume 92.1 fL (78.0-98.0); Mean Platelet Volume 12.2 fL (7.4-10.4); Platelet Count 305 10x3/uL (130-400); RBC Distribution Width 15.6 % (11.5-14.5); Red Blood Cell (RBC) Count 4.16 mill/uL (4.70-6.10)
[2024-03-18] MEDS: Insulin Regular, Human 100 UNIT/ML 10 ML VIAL SC PRN (05:56)
[2024-03-18 06:25] LABS: Anion Gap 24 mmol/L (10-20); BUN (Urea Nitrogen) 42 mg/dL (8.4-25.7); Calc. Creatinine Clearance 15 mL/min (70-130); Calcium 10.6 mg/dL (7.8-10.44); Carbon Dioxide 20 mmol/L (22-29); Chloride 99 mmol/L (98-107); Estimated GFR 7; Glucose 238 mg/dL (70-105); Potassium 4.3 mmol/L (3.5-5.1); Sodium 139 mmol/L (136-145)
[2024-03-18] MEDS ORDERED: Heparin 10,000 UNITS/ 10 ML VIAL ONE (10:23)
[2024-03-18] MEDS ORDERED: PROPOFOL 20 ML ONE ×2 (10:37→11:29)
[2024-03-18] MEDS ORDERED: PHENYLEPHRINE-NS 100 MCG/ML 10 ML SYRINGE ONE (10:55)
[2024-03-18] MEDS ORDERED: Lidocaine 1% PF 5 ML VIAL ONE (10:55)
[2024-03-18] MEDS ORDERED: fentaNYL PF 100 MCG/2 ML SYRINGE ONE (11:29)
[2024-03-18] MEDS ORDERED: SUCCINYLCHOLINE/SOD CL,ISO/PF 200 MG/10 ML SYRINGE FS ONE (11:29)
[2024-03-18] MEDS ORDERED: Albumin 25% 25 GM (100 mL) BOT IVPB SCH (16:15)
[2024-03-18] MEDS: Albumin 25% 25 GM (100 mL) BOT IVPB SCH (20:49)
[2024-03-19] MEDS: FLU (Fluarix Triv) TS24-25(6MOS UP)/PF 45 MCG/0.5 ML Syringe IM ONE (09:10)
[2024-03-19] MEDS: Acetaminophen 325 MG TAB PO PRN (17:19)
[2024-03-19 18:19] LABS: Hematocrit 43.3 % (42.0-52.0); Hemoglobin 12.3 g/dL (14.0-18.0); Mean Corpuscular HGB CONC 28.4 g/dL (32.0-36.0); Mean Corpuscular Hemoglobin 27.9 pg (27.0-31.0); Mean Corpuscular Volume 98.2 fL (78.0-98.0); Mean Platelet Volume 12.2 fL (7.4-10.4); Platelet Count 137 10x3/uL (130-400); RBC Distribution Width 15.6 % (11.5-14.5); Red Blood Cell (RBC) Count 4.41 mill/uL (4.70-6.10)
[2024-03-20 04:55] LABS: #Basophils 0.11 10x3/uL (0.0-0.2); %Basophils 0.6 % (0.0-1.0); %Monocytes 9.7 % (0.0-10.0); %Neutrophils 77.8 % (42.0-75.0); Hematocrit 39.7 % (42.0-52.0); Hemoglobin 12.3 g/dL (14.0-18.0); Mean Corpuscular Hemoglobin 27.5 pg (27.0-31.0); Mean Corpuscular Volume 88.6 fL (78.0-98.0); Mean Platelet Volume 12.3 fL (7.4-10.4); Platelet Count 308 10x3/uL (130-400); RBC Distribution Width 15.4 % (11.5-14.5); Red Blood Cell (RBC) Count 4.48 mill/uL (4.70-6.10)
[2024-03-20 05:09] LABS: Anion Gap 29 mmol/L (10-20); BUN (Urea Nitrogen) 42 mg/dL (8.4-25.7); Calc. Creatinine Clearance 15 mL/min (70-130); Carbon Dioxide 15 mmol/L (22-29); Chloride 98 mmol/L (98-107); Potassium 4.2 mmol/L (3.5-5.1); Sodium 138 mmol/L (136-145)
[2024-03-20 05:10] LABS: Calcium 11.6 mg/dL (7.8-10.44); Estimated GFR 7; Glucose 297 mg/dL (70-105)
[2024-03-20] MEDS ORDERED: levETIRAcetam 500 MG TAB PO SCH (09:00)
[2024-03-20] MEDS: levETIRAcetam 500 mg/5 ml Oral Solution PO SCH (10:31)
[2024-03-20] MEDS: Cinacalcet HCl 30 MG TAB PO SCH (16:23)
[2024-03-20] MEDS: Insulin Regular, Human 100 UNIT/ML 10 ML VIAL SC SCH (18:09)
[2024-03-20] MEDS: Insulin Glargine 30 UNITS/0.3 ML VIAL SC SCH (20:31)
[2024-03-21 04:32] LABS: #Basophils 0.13 10x3/uL (0.0-0.2); %Basophils 0.6 % (0.0-1.0); %Eosinophils 0.8 % (0.0-10.0); %Lymphocytes 10.7 % (21.0-51.0); %Monocytes 7.3 % (0.0-10.0); %Neutrophils 79.7 % (42.0-75.0); Hemoglobin 11.8 g/dL (14.0-18.0); Mean Corpuscular HGB CONC 31.9 g/dL (32.0-36.0); Mean Corpuscular Hemoglobin 28.1 pg (27.0-31.0); Mean Corpuscular Volume 88.1 fL (78.0-98.0); Platelet Count 318 10x3/uL (130-400); RBC Distribution Width 15.8 % (11.5-14.5)
[2024-03-21 04:47] LABS: Anion Gap 29 mmol/L (10-20); BUN (Urea Nitrogen) 50 mg/dL (8.4-25.7); Calc. Creatinine Clearance 12 mL/min (70-130); Calcium 11.5 mg/dL (7.8-10.44); Carbon Dioxide 17 mmol/L (22-29); Chloride 99 mmol/L (98-107); Estimated GFR 5; Glucose 312 mg/dL (70-105); Potassium 4.7 mmol/L (3.5-5.1); Sodium 140 mmol/L (136-145)
[2024-03-21] MEDS: Acetaminophen 325 MG TAB PO PRN (05:55)
[2024-03-21] MEDS ORDERED: Piperacillin/Tazobactam 3.375 GM in Sodium Chloride 0.9% 100 ML IVPB SCH (09:15)
[2024-03-21] MEDS: Lactated Ringer's 500 ML IV SCH (09:36)
[2024-03-21] MEDS: Midodrine HCl 5 MG TAB PO SCH ×2 (09:36→22:12)
[2024-03-21 09:40] LABS: Lactic Acid 2.34 mmol/L (0.50-2.20)
[2024-03-21] MEDS ORDERED: Vancomycin Dialysis Sliding Scale (Wt > 99) FS SCH (09:45)
[2024-03-21] MEDS: Piperacillin/Tazobactam 3.375 GM in Sodium Chloride 0.9% 100 ML IVPB SCH ×2 (10:23→16:54)
[2024-03-21] MEDS: Vancomycin (BATCH) 2 GM in Premix 1 BAG IVPB SCH (11:37)
[2024-03-21] MEDS: Sodium Chloride 0.9% 500 ML IV SCH (11:40)
[2024-03-21] MEDS: Calcitonin,Salmon,Synthetic 400 UNITS/2 ML SC SCH (13:04)
[2024-03-21] MEDS ORDERED: Vancomycin 1 GM in Premix 1 BAG IVPB SCH (21:00)
[2024-03-22] MEDS: Midodrine HCl 5 MG TAB PO SCH (01:27)
[2024-03-22 03:35] LABS: Hemoglobin 10.5 g/dL (14.0-18.0); Mean Corpuscular HGB CONC 30.9 g/dL (32.0-36.0); Mean Corpuscular Hemoglobin 27.5 pg (27.0-31.0); Mean Platelet Volume 12.3 fL (7.4-10.4); Platelet Count 315 10x3/uL (130-400); Red Blood Cell (RBC) Count 3.82 mill/uL (4.70-6.10)
[2024-03-22 03:51] LABS: Anion Gap 30 mmol/L (10-20); BUN (Urea Nitrogen) 68 mg/dL (8.4-25.7); Calc. Creatinine Clearance 11 mL/min (70-130); Calcium 10.5 mg/dL (7.8-10.44); Carbon Dioxide 11 mmol/L (22-29); Chloride 103 mmol/L (98-107); Estimated GFR 4; Glucose 429 mg/dL (70-105); Potassium 5.5 mmol/L (3.5-5.1); Sodium 138 mmol/L (136-145)
[2024-03-22 03:59] LABS: Anisocytosis SLIGHT = 6-15 cells HPF (0-5); Band 10 % (5-11); Eosinophils 1 % (0-10); Hypochromia SLIGHT = 6-15 cells HPF (0-5); Lymphocytes 6 % (21-51); Monocytes 7 % (0-10); Neutrophil 76 % (42-75); Platelet Adequacy Comment Platelets Normal; Polychromasia SLIGHT = 2-3 cells HPF (0-2)
[2024-03-22] MEDS: levETIRAcetam 500 mg/5 ml Oral Solution PO SCH (09:09)
[2024-03-22] MEDS ORDERED: Iopamidol 370 76% 100 ML VIAL ONE (13:15)
[2024-03-22] MEDS: Ondansetron PF 4 MG/2 ML Vial IVP PRN (21:47)
[2024-03-22] MEDS: Pantoprazole 40 MG DR.TAB PO SCH (21:48)
[2024-03-23 08:59] LABS: %Basophils 0.5 % (0.0-1.0); %Eosinophils 1.5 % (0.0-10.0); %Lymphocytes 8.2 % (21.0-51.0); %Monocytes 11.1 % (0.0-10.0); %Neutrophils 77.8 % (42.0-75.0); Hematocrit 25.6 % (42.0-52.0); Hemoglobin 7.7 g/dL (14.0-18.0); Mean Corpuscular HGB CONC 30.1 g/dL (32.0-36.0); Mean Corpuscular Hemoglobin 27.7 pg (27.0-31.0); Mean Corpuscular Volume 92.1 fL (78.0-98.0); Mean Platelet Volume 12.6 fL (7.4-10.4); Platelet Count 288 10x3/uL (130-400); Red Blood Cell (RBC) Count 2.78 mill/uL (4.70-6.10)
[2024-03-23 12:44] LABS: ALT (SGPT) 8 U/L (Less than 45); AST (SGOT) 57 U/L (11-34); Albumin 2.8 g/dL (3.1-4.5); Alkaline Phosphatase 66 U/L (40-110); Anion Gap 30 mmol/L (10-20); BUN (Urea Nitrogen) 38 mg/dL (8.4-25.7); Bilirubin, Total 0.4 mg/dL (0.3-1.2); Calc. Creatinine Clearance 17 mL/min (70-130); Carbon Dioxide 16 mmol/L (22-29); Chloride 99 mmol/L (98-107); Estimated GFR 8; Glucose 402 mg/dL (70-105); Potassium 4.3 mmol/L (3.5-5.1); Protein, Total 6.8 g/dL (6.0-8.3); Sodium 141 mmol/L (136-145)
[2024-03-23] MEDS: Pantoprazole 40 MG GRANULES PACKET PO SCH (12:51)
[2024-03-23] MEDS: Sevelamer 2.4 GM PACKET PO SCH (16:24)
[2024-03-23] MEDS: Vancomycin HCl 500 MG in Sodium Chloride 0.9% 100 ML IVPB SCH (16:29)
[2024-03-23 18:22] LABS: Hematocrit 24.3 % (42.0-52.0); Hemoglobin 7.7 g/dL (14.0-18.0)
[2024-03-23] MEDS: Albumin 25% 25 GM (100 mL) BOT IVPB SCH (20:28)
[2024-03-24] MEDS: levETIRAcetam 500 mg/5 ml Oral Solution PO SCH (00:36)
[2024-03-24 05:04] LABS: #Basophils 0.09 10x3/uL (0.0-0.2); %Basophils 0.6 % (0.0-1.0); %Eosinophils 3.4 % (0.0-10.0); %Lymphocytes 10.4 % (21.0-51.0); %Monocytes 12.3 % (0.0-10.0); %Neutrophils 72.7 % (42.0-75.0); Hematocrit 31.1 % (42.0-52.0); Hemoglobin 9.6 g/dL (14.0-18.0); Mean Corpuscular HGB CONC 30.9 g/dL (32.0-36.0); Mean Corpuscular Hemoglobin 26.7 pg (27.0-31.0); Mean Corpuscular Volume 86.6 fL (78.0-98.0); Mean Platelet Volume 12.4 fL (7.4-10.4); Platelet Count 273 10x3/uL (130-400); RBC Distribution Width 17.2 % (11.5-14.5); Red Blood Cell (RBC) Count 3.59 mill/uL (4.70-6.10)
[2024-03-24 05:53] LABS: ALT (SGPT) 8 U/L (Less than 45); AST (SGOT) 12 U/L (11-34); Alkaline Phosphatase 69 U/L (40-110); Anion Gap 26 mmol/L (10-20); BUN (Urea Nitrogen) 26 mg/dL (8.4-25.7); Bilirubin, Total 0.6 mg/dL (0.3-1.2); Calc. Creatinine Clearance 24 mL/min (70-130); Calcium 8.8 mg/dL (7.8-10.44); Carbon Dioxide 20 mmol/L (22-29); Chloride 101 mmol/L (98-107); Estimated GFR 12; Globulin 3.7 g/dL (2.4-3.5); Glucose 269 mg/dL (70-105); Protein, Total 6.7 g/dL (6.0-8.3); Sodium 143 mmol/L (136-145)
[2024-03-24] MEDS ORDERED: PROPOFOL 20 ML ONE (08:56)
[2024-03-24] MEDS ORDERED: Lidocaine 1% PF 5 ML VIAL ONE ×2 (08:56→08:57)
[2024-03-24] MEDS ORDERED: GLYCOPYRROLATE/PF 0.2 MG/ML VIAL ONE (08:56)
[2024-03-24 11:28] LABS: Actual Bicarbonate (HCO3a) 25.1 mEq/L (22-28); Base Excess (BEa) 2.3 mEq/L (-2.0 to +3.0); CO2 Tension 31.9 mmHg (35.0-45.0); Calcium, Ionized (arterial) 1.22 mmol/L (1.12-1.30); Carboxyhemoglobin (COHb) 0.4 gm% (0.0-3.0); Hematocrit-ABG 29 % (42.0-52.0); Hemoglobin (Hb) 9.9 g/dL (14.0-18.0); Potassium - ABG Lab 3.47 mmol/L (3.70-5.30); pH, Arterial 7.513 (7.35-7.45)
[2024-03-24 11:30] LABS: Puncture Site Right Brachial art
[2024-03-24] MEDS: Insulin Glargine 30 UNITS/0.3 ML VIAL SC SCH (12:55)
[2024-03-24 14:16] LABS: Lactic Acid 1.46 mmol/L (0.50-2.20)
[2024-03-24] MEDS ORDERED: Heparin 1,000 UNITS/ML VIAL ONE (15:32)
[2024-03-24] MEDS ORDERED: Morphine 2 MG/ML VIAL SLOW IVP PRN (18:39)
[2024-03-24] MEDS ORDERED: Lorazepam 2 MG/ML VIAL SLOW IVP PRN (18:43)
[2024-03-24] MEDS ORDERED: Scopolamine 1 mg/72 hour Patch TD SCH (18:45)
[2024-03-24 20:53] VITALS: BMI 39.5
[2024-03-24] MEDS: Lansoprazole 30 MG/10 ML UDCUP PO SCH (22:33)
[2024-03-25 07:54] LABS: ALT (SGPT) Less than 7 U/L (Less than 45); AST (SGOT) 10 U/L (11-34); Albumin 2.7 g/dL (3.1-4.5); Alkaline Phosphatase 63 U/L (40-110); Anion Gap 26 mmol/L (10-20); BUN (Urea Nitrogen) 34 mg/dL (8.4-25.7); Bilirubin, Total 0.4 mg/dL (0.3-1.2); Calc. Creatinine Clearance 16 mL/min (70-130); Carbon Dioxide 19 mmol/L (22-29); Chloride 101 mmol/L (98-107); Estimated GFR 8; Globulin 4.2 g/dL (2.4-3.5); Glucose 281 mg/dL (70-105); Potassium 3.9 mmol/L (3.5-5.1); Protein, Total 6.9 g/dL (6.0-8.3); Sodium 142 mmol/L (136-145)
[2024-03-25] MEDS: Albumin 25% 25 GM (100 mL) BOT IVPB PRN (08:01)
[2024-03-25 08:14] LABS: Vancomycin, Trough 24.4 ug/mL
[2024-03-25 08:15] LABS: #Basophils 0.07 10x3/uL (0.0-0.2); %Basophils 0.7 % (0.0-1.0); %Eosinophils 3.5 % (0.0-10.0); %Lymphocytes 18.9 % (21.0-51.0); %Monocytes 11.5 % (0.0-10.0); %Neutrophils 64.2 % (42.0-75.0); Hematocrit 37.2 % (42.0-52.0); Hemoglobin 11.8 g/dL (14.0-18.0); Mean Corpuscular HGB CONC 31.7 g/dL (32.0-36.0); Mean Corpuscular Volume 85.1 fL (78.0-98.0); Mean Platelet Volume 12.5 fL (7.4-10.4); Platelet Count 244 10x3/uL (130-400); RBC Distribution Width 17.2 % (11.5-14.5); Red Blood Cell (RBC) Count 4.37 mill/uL (4.70-6.10)
[2024-03-25] MEDS: Vancomycin HCl 500 MG in Sodium Chloride 0.9% 100 ML IVPB SCH (22:00)
[2024-03-26 03:51] LABS: Actual Bicarbonate (HCO3v) 20.2 mEq/L (22-28); Base Excess -3.1 mEq/L (-2.0 to +3.0); Calcium, Ionized (venous) 1.18 mmol/L (1.16-1.32); Chloride (VBG) 96 mmol/L (98-106); Hematocrit-VBG 32 % (42.0-52.0); Hemoglobin (Hb) 10.9 g/dL (13.1-17.2); Potassium (VBG) 3.88 mmol/L (3.70-5.30); Sodium 139 mmol/L (133-146); pH (venous) 7.439 (7.32-7.43)
[2024-03-26 04:00] LABS: #Basophils 0.12 10x3/uL (0.0-0.2); %Basophils 0.9 % (0.0-1.0); %Eosinophils 3.1 % (0.0-10.0); %Lymphocytes 19.4 % (21.0-51.0); %Monocytes 9.7 % (0.0-10.0); %Neutrophils 65.8 % (42.0-75.0); Hematocrit 33.5 % (42.0-52.0); Hemoglobin 10.4 g/dL (14.0-18.0); Mean Corpuscular Hemoglobin 27.2 pg (27.0-31.0); Mean Corpuscular Volume 87.5 fL (78.0-98.0); Mean Platelet Volume 11.9 fL (7.4-10.4); Platelet Count 316 10x3/uL (130-400); RBC Distribution Width 16.5 % (11.5-14.5); Red Blood Cell (RBC) Count 3.83 mill/uL (4.70-6.10)
[2024-03-26 04:42] LABS: ALT (SGPT) Less than 7 U/L (Less than 45); AST (SGOT) 16 U/L (11-34); Albumin 3.3 g/dL (3.1-4.5); Alkaline Phosphatase 68 U/L (40-110); Anion Gap 25 mmol/L (10-20); BUN (Urea Nitrogen) 19 mg/dL (8.4-25.7); Bilirubin, Total 0.5 mg/dL (0.3-1.2); Calc. Creatinine Clearance 23 mL/min (70-130); Calcium 10.4 mg/dL (7.8-10.44); Carbon Dioxide 20 mmol/L (22-29); Chloride 98 mmol/L (98-107); Estimated GFR 12; Globulin 4.5 g/dL (2.4-3.5); Glucose 207 mg/dL (70-105); Magnesium 2.2 mg/dL (1.6-2.6); Potassium 3.8 mmol/L (3.5-5.1); Protein, Total 7.8 g/dL (6.0-8.3); Sodium 139 mmol/L (136-145)
[2024-03-26] MEDS: Cinacalcet HCl 30 MG TAB PO SCH (09:24)
[2024-03-26] MEDS: Piperacillin/Tazobactam 3.375 GM VIAL ONE (16:01)
[2024-03-26] MEDS ORDERED: Pantoprazole 40 MG GRANULES PACKET PO SCH (21:00)
[2024-03-26] MEDS ORDERED: Lansoprazole 30 MG/10 ML UDCUP PO SCH (21:00)
[2024-03-26] MEDS: Lansoprazole 30 MG/10 ML UDCUP PO SCH (22:43)
[2024-03-27 04:44] LABS: #Basophils 0.15 10x3/uL (0.0-0.2); %Basophils 1.2 % (0.0-1.0); %Eosinophils 2.9 % (0.0-10.0); %Lymphocytes 19.5 % (21.0-51.0); %Monocytes 11.1 % (0.0-10.0); %Neutrophils 63.9 % (42.0-75.0); Hematocrit 34.6 % (42.0-52.0); Hemoglobin 10.6 g/dL (14.0-18.0); Mean Corpuscular HGB CONC 30.6 g/dL (32.0-36.0); Mean Corpuscular Hemoglobin 26.9 pg (27.0-31.0); Mean Corpuscular Volume 87.8 fL (78.0-98.0); Mean Platelet Volume 11.3 fL (7.4-10.4); Platelet Count 352 10x3/uL (130-400); RBC Distribution Width 16.5 % (11.5-14.5); Red Blood Cell (RBC) Count 3.94 mill/uL (4.70-6.10)
[2024-03-27 05:10] LABS: ALT (SGPT) Less than 7 U/L (Less than 45); AST (SGOT) 14 U/L (11-34); Albumin 2.9 g/dL (3.1-4.5); Alkaline Phosphatase 71 U/L (40-110); Anion Gap 24 mmol/L (10-20); BUN (Urea Nitrogen) 27 mg/dL (8.4-25.7); Bilirubin, Total 0.5 mg/dL (0.3-1.2); Calc. Creatinine Clearance 16 mL/min (70-130); Carbon Dioxide 20 mmol/L (22-29); Chloride 99 mmol/L (98-107); Estimated GFR 8; Globulin 4.6 g/dL (2.4-3.5); Glucose 255 mg/dL (70-105); Magnesium 2.3 mg/dL (1.6-2.6); Potassium 3.6 mmol/L (3.5-5.1); Protein, Total 7.5 g/dL (6.0-8.3); Sodium 139 mmol/L (136-145)
[2024-03-27 07:11] LABS: HIV (1/2) Antibody/Antigen NONREACTIVE (NonReactive); HIV 1/2 INDEX 0.05 S/CO (<1.00)
[2024-03-27 07:28] LABS: Vitamin B12 1320 pg/mL (211-911)
[2024-03-27] MEDS ORDERED: Lansoprazole 30 MG/10 ML UDCUP PO SCH (09:00)
[2024-03-27] MEDS: Pantoprazole 40 MG DR.TAB PO SCH (11:30)
[2024-03-27 20:15] LABS: Syphilis Antibody Nonreactive (Nonreactive); Syphilis Antibody Index 0.13 S/CO (<1.00 Non-Reactive)
[2024-03-28 04:23] LABS: #Basophils 0.15 10x3/uL (0.0-0.2); %Basophils 1.1 % (0.0-1.0); %Eosinophils 4.4 % (0.0-10.0); %Lymphocytes 20.5 % (21.0-51.0); %Monocytes 12.6 % (0.0-10.0); %Neutrophils 59.9 % (42.0-75.0); Hematocrit 33.2 % (42.0-52.0); Hemoglobin 10.2 g/dL (14.0-18.0); Mean Corpuscular HGB CONC 30.7 g/dL (32.0-36.0); Mean Corpuscular Hemoglobin 26.9 pg (27.0-31.0); Mean Corpuscular Volume 87.6 fL (78.0-98.0); Mean Platelet Volume 11.8 fL (7.4-10.4); Platelet Count 424 10x3/uL (130-400); RBC Distribution Width 16.5 % (11.5-14.5); Red Blood Cell (RBC) Count 3.79 mill/uL (4.70-6.10)
[2024-03-28 04:34] LABS: Phosphorus 5.6 mg/dL (2.5-4.5)
[2024-03-28 04:37] LABS: ALT (SGPT) Less than 7 U/L (Less than 45); AST (SGOT) 15 U/L (11-34); Albumin 2.8 g/dL (3.1-4.5); Alkaline Phosphatase 74 U/L (40-110); Anion Gap 25 mmol/L (10-20); BUN (Urea Nitrogen) 33 mg/dL (8.4-25.7); Bilirubin, Total 0.5 mg/dL (0.3-1.2); Calc. Creatinine Clearance 13 mL/min (70-130); Calcium 9.8 mg/dL (7.8-10.44); Carbon Dioxide 21 mmol/L (22-29); Chloride 98 mmol/L (98-107); Estimated GFR 6; Globulin 4.8 g/dL (2.4-3.5); Glucose 218 mg/dL (70-105); Magnesium 2.3 mg/dL (1.6-2.6); Potassium 3.6 mmol/L (3.5-5.1); Protein, Total 7.6 g/dL (6.0-8.3); Sodium 140 mmol/L (136-145)
[2024-03-28 07:23] LABS: Vancomycin, Trough 23.1 ug/mL
[2024-03-28] MEDS: Lorazepam 2 MG/ML VIAL SLOW IVP PRN (15:15)
[2024-03-28] MEDS: Albumin 25% 25 GM (100 mL) BOT IVPB SCH (17:24)
[2024-03-29 04:01] LABS: #Basophils 0.13 10x3/uL (0.0-0.2); %Eosinophils 3.3 % (0.0-10.0); %Lymphocytes 24.8 % (21.0-51.0); %Monocytes 13.1 % (0.0-10.0); %Neutrophils 56.6 % (42.0-75.0); Hematocrit 32.9 % (42.0-52.0); Hemoglobin 10.1 g/dL (14.0-18.0); Mean Corpuscular HGB CONC 30.7 g/dL (32.0-36.0); Mean Corpuscular Hemoglobin 27.2 pg (27.0-31.0); Mean Corpuscular Volume 88.7 fL (78.0-98.0); Mean Platelet Volume 11.3 fL (7.4-10.4); Platelet Count 421 10x3/uL (130-400); RBC Distribution Width 16.8 % (11.5-14.5); Red Blood Cell (RBC) Count 3.71 mill/uL (4.70-6.10)
[2024-03-29 04:47] LABS: ALT (SGPT) Less than 7 U/L (Less than 45); AST (SGOT) 15 U/L (11-34); Albumin 3.1 g/dL (3.1-4.5); Alkaline Phosphatase 67 U/L (40-110); Anion Gap 23 mmol/L (10-20); BUN (Urea Nitrogen) 18 mg/dL (8.4-25.7); Bilirubin, Total 0.5 mg/dL (0.3-1.2); Calc. Creatinine Clearance 20 mL/min (70-130); Calcium 9.7 mg/dL (7.8-10.44); Carbon Dioxide 23 mmol/L (22-29); Chloride 100 mmol/L (98-107); Estimated GFR 9; Globulin 4.6 g/dL (2.4-3.5); Glucose 158 mg/dL (70-105); Magnesium 2.2 mg/dL (1.6-2.6); Potassium 3.6 mmol/L (3.5-5.1); Protein, Total 7.7 g/dL (6.0-8.3); Sodium 142 mmol/L (136-145)
[2024-03-30 04:45] LABS: #Basophils 0.15 10x3/uL (0.0-0.2); %Basophils 1.2 % (0.0-1.0); %Eosinophils 3.5 % (0.0-10.0); %Lymphocytes 23.2 % (21.0-51.0); %Monocytes 13.9 % (0.0-10.0); Hematocrit 35.2 % (42.0-52.0); Hemoglobin 10.7 g/dL (14.0-18.0); Mean Corpuscular HGB CONC 30.4 g/dL (32.0-36.0); Mean Corpuscular Volume 88.9 fL (78.0-98.0); Mean Platelet Volume 11.9 fL (7.4-10.4); Platelet Count 431 10x3/uL (130-400); Red Blood Cell (RBC) Count 3.96 mill/uL (4.70-6.10)
[2024-03-30 04:51] LABS: Phosphorus 4.4 mg/dL (2.5-4.5)
[2024-03-30 04:53] LABS: ALT (SGPT) Less than 7 U/L (Less than 45); AST (SGOT) 13 U/L (11-34); Alkaline Phosphatase 70 U/L (40-110); Anion Gap 25 mmol/L (10-20); BUN (Urea Nitrogen) 28 mg/dL (8.4-25.7); Bilirubin, Total 0.5 mg/dL (0.3-1.2); Calc. Creatinine Clearance 15 mL/min (70-130); Calcium 9.5 mg/dL (7.8-10.44); Carbon Dioxide 20 mmol/L (22-29); Chloride 99 mmol/L (98-107); Estimated GFR 7; Globulin 4.7 g/dL (2.4-3.5); Glucose 244 mg/dL (70-105); Magnesium 2.2 mg/dL (1.6-2.6); Potassium 3.8 mmol/L (3.5-5.1); Protein, Total 7.7 g/dL (6.0-8.3); Sodium 140 mmol/L (136-145)
[2024-03-30 16:22] VITALS: BP 130/60; TEMP 98.1
[2024-03-30] MEDS: Albumin 25% 25 GM (100 mL) BOT IVPB PRN (18:28)
== END 2024-03-30 20:00 | DRG 314 ==
LOC: ERS 06:34 → 2NO 16:22 → INTOOBSV 16:22 → OBSVTOIN 03-18 10:20 → IMCU/EMU 03-24 21:19 → 2SE 03-25 15:47
PROVIDERS: ADMIT Internal Medicine; ATTEND Internal Medicine
PROC: 30233J1 Transfusion of Nonautologous Serum Albumin into Peripheral Vein, Percutaneous Approach (ICD-10-PCS; 2024-03-16)
PROC: 0DB68ZX Excision of Stomach, Via Natural or Artificial Opening Endoscopic, Diagnostic (ICD-10-PCS; 2024-03-18)
PROC: 5A09357 Assistance with Respiratory Ventilation, Less than 24 Consecutive Hours, Continuous Positive Airway Pressure (ICD-10-PCS; 2024-03-20)
PROC: 30233N1 Transfusion of Nonautologous Red Blood Cells into Peripheral Vein, Percutaneous Approach (ICD-10-PCS; 2024-03-23)
PROC: 4A033R1 Measurement of Arterial Saturation, Peripheral, Percutaneous Approach (ICD-10-PCS; 2024-03-24)
PROC: 0DJ08ZZ Inspection of Upper Intestinal Tract, Via Natural or Artificial Opening Endoscopic (ICD-10-PCS; 2024-03-24)
PROC: XX20X89 Monitoring of Brain Electrical Activity, Computer-aided Detection and Notification, New Technology Group 9 (ICD-10-PCS; principal; 2024-03-25)
DX: I95.9 Hypotension, unspecified (principal); G93.41 Metabolic encephalopathy; K22.11 Ulcer of esophagus with bleeding; N18.6 End stage renal disease; K26.4 Chronic or unspecified duodenal ulcer with hemorrhage; K92.1 Melena; E87.20 Acidosis, unspecified; G47.33 Obstructive sleep apnea (adult) (pediatric); E78.5 Hyperlipidemia, unspecified; E87.5 Hyperkalemia; E88.09 Other disorders of plasma-protein metabolism, not elsewhere classified; D63.1 Anemia in chronic kidney disease; E11.22 Type 2 diabetes mellitus with diabetic chronic kidney disease; E83.52 Hypercalcemia; K29.70 Gastritis, unspecified, without bleeding; Z99.2 Dependence on renal dialysis; Z90.49 Acquired absence of other specified parts of digestive tract; Z98.890 Other specified postprocedural states; Z95.0 Presence of cardiac pacemaker
CPT/HCPCS: 36415; 36416; 36430; 36600; 70450; 70492; 71045; 71260; 74018; 74177; 78072; 78278; 80048; 80053; 80202; 82010; 82088; 82140; 82274; 82533; 82607; 82805; 83605; 83735; 83970; 84100; 84484; 85025; 85027; 86780; 86850; 86900; 86901; 87040; 87081; 87389; 87633; 88305; 88313; 88342; 90935; 93005; 93306; 95705; 97139; A9500; A9560; G0257; J0630; J1644; J1815; J2060; J2405; J2470; J2543; J2704; J3370; J3490; J7030; J7120; P9016; P9047; Q9967